=== PATIENT | male | born 1975 | race Caucasian/White ===

== ENCOUNTER 2018-03-23 09:27 | Inpatient (IN) ==
[2018-03-23] MEDS ORDERED: 0.9 % Sodium Chloride 1,000 ML IVC ONE (09:36)
[2018-03-23] MEDS ORDERED: Ondansetron 4 MG/2 ML VIAL IVP ONE (09:36)
[2018-03-23] MEDS ORDERED: *HR* FentaNYL (PF) 100 MCG/2 ML VIAL IVP ONE ×2 (09:38→12:05)
--- NOTE | 2018-03-23 09:40 | Emergency Department Note ---
Disposition Clinical Impression: Pancreatitis Qualifiers: Chronicity: acute Pancreatitis type: unspecified pancreatitis type Acute pancreatitis complication: unspecified Qualified Code(s): K85.90 - Acute pancreatitis without necrosis or infection, unspecified Disposition: Admitted As Inpatient Condition: Good Time of Disposition: 11:44 Abdominal Pain HPI - General Chief Complaint: ED Abdominal Pain Stated Complaint: abd pain Time Seen by Provider: 03/23/18 09:32 Source: patient, family Mode of arrival: ambulatory Limitations: no limitations Nursing Notes Reviewed: Yes Vital Signs Reviewed: Yes - History of Present Illness HPI Narrative: 42-year-old with a history of previous pancreatitis related to elevated triglycerides comes in complaining of diffuse abdominal pain. He feels that it so similar to his pancreatitis that he has had the past. Is scheduled to see a specialist up at [facility] in the coming weeks. Headache for the last for 5 days. Pt Subjective Complaint: abdominal pain Onset (ago): day(s) Consistency: constant Location: diffuse Pain Scale: 10 Quality: aching Radiation: none Migration to: no migration Improves with: nothing Worsens with: nothing - Related Data Previous Rx's Medication Instructions Recorded Hydrocodone/Acetaminophen [[place] 1 tab PO Q6H PRN #16 tab 09/21/15 5-325 Tablet] Hydrocortisone Acetate [Anusol-Hc] 25 mg RC BID #28 supp.rect 09/21/15 Allergies Allergy/AdvReac Type Severity Reaction Status Date / Time No Known Allergies Allergy Verified 03/23/18 09:30 All systems ED: reviewed and negative except as stated. Constitutional: Denies: fever, chills, weakness, weight change Eyes: Denies: eye pain, eye discharge, vision change ENT ED: Denies: ear pain, throat pain, dental pain, hearing loss, epistaxis, congestion, dysphagia Cardiovascular: Denies: chest pain, palpitations, dyspnea on exertion, edema, syncope Respiratory: Denies: cough, dyspnea, wheezes, hemoptysis, stridor Gastrointestinal: Reports: abdominal pain. Denies: nausea, vomiting, diarrhea, constipation, hematemesis, melena, hematochezia Genitourinary: Denies: urgency, dysuria, frequency, hematuria Musculoskeletal: Denies: back pain, neck pain, arthralgia, myalgia Integumentary: Denies: rash, abrasion, lesions Neurological: Reports: headache. Denies: weakness, numbness, paresthesias, confusion, abnormal gait, vertigo Psychiatric: Denies: anxiety, depression, suicidal thoughts, homicidal thoughts , auditory hallucinations, visual hallucinations Endocrine: Denies: fatigue Hematological/Lymphatic: Denies: easy bleeding, easy bruising Allergic/Immunologic: Denies: facial swelling, urticaria Abdominal Pain PMH - Past Medical History Medical history: Reports: diabetes, GERD, hyperlipidemia, hypertension Male Surgical History: Reports: no surgical history Psychiatric history: Reports: depression - Social History Smoking status: Current every day smoker Alcohol use: Reports: rarely Drug use: Reports: none Physical Exam - General Limitations: no limitations General appearance: alert, in no apparent distress - Head Head exam: atraumatic, normocephalic, normal inspection - Eye Eye exam: Present: normal appearance, PERRL, EOMI - ENT ENT exam: normal exam, normal oropharynx, mucous membranes moist - Neck Neck exam: Present: normal inspection, full ROM, trachea midline - Chest Chest inspection: Present: normal inspection, symmetric chest wall rise - Respiratory Respiratory exam: Present: normal lung sounds bilaterally - Cardiovascular Cardiovascular exam: Present: regular rate, normal rhythm, normal heart sounds - Abdominal Exam Abdominal exam: Present: soft, tenderness. Absent: distention, guarding, rebound, rigidity Abdominal tenderness: Present: diffuse - Extremities Exam Extremities exam: Present: normal inspection, full ROM. Absent: tenderness, pedal edema - Expanded Lower Extremity Exam Neurovascular/Tendon exam: Absent: motor deficit, sensory deficit, tendon deficit Gait: observed and normal - Back Exam Back exam: Present: normal inspection, full ROM. Absent: tenderness - Neurological Exam Neurological exam: Present: alert, oriented X3. Absent: motor sensory deficit - Psychiatric Psychiatric exam: Present: normal affect, normal mood - Skin Skin exam: Present: warm, dry, intact, normal color Course - Reevaluation(s) Reevaluation #1: 42-year-old with a history of pancreatitis related to triglycerides comes in with increasing pain. CT scan is consistent with acute pancreatitis patient will be admitted. Time: 11:43 Reevaluation #2: The patient now states he has not taken his blood pressure medicine for at least 2 weeks. Review of the records shows on metoprolol 100 once a day and lisinopril 20. Since he has not been on them for 2 weeks we will started I will give him 50 mg metoprolol now along with his lisinopril. The headache is CT is negative I did discuss lumbar puncture with him and he declined that. Time: 12:21 - Consultations Consultation #1: Discussed with , admit. Time: 11:44 Vital Signs Temperature 98.2 F 03/23/18 09:29 Pulse Rate 106 03/23/18 09:29 Respiratory Rate 20 03/23/18 09:29 Blood Pressure 155/102 03/23/18 09:29 O2 Sat by Pulse Oximetry 95 03/23/18 09:29 Temperature 98.2 F 03/23/18 09:29 Pulse Rate 106 03/23/18 09:29 Respiratory Rate 20 03/23/18 09:29 Blood Pressure 155/102 03/23/18 09:29 O2 Sat by Pulse Oximetry 95 03/23/18 09:29 Oxygen Delivery Oxygen Delivery Room Air Abdominal Pain - Lab Data Lab results reviewed: Yes I reviewed the patient's lab results. Result diagrams: 03/23/18 10:13 03/23/18 09:49 Lab Results 03/23/18 03/23/18 03/23/18 Range/Units 09:49 09:49 09:49 WBC (4.3-11.1) K/mcL RBC (4.19-5.50) M/mcL Hgb (12.9-16.9) g/dL Hct (37.5-50.1) % MCV (83.0-100.0) fL MCH (28.0-33.3) pg MCHC (31.6-35.5) g/dL RDW (11.5-14.5) % Plt Count (140-400) K/mcL MPV (9.4-12.4) fL Immature Gran % (0-4) % Seg Neutrophils % % Lymphocytes % % Monocytes % % Eosinophils % % Basophils % % Neutrophils # (1.6-8.9) K/mcL Lymphocytes # (0.6-4.6) K/mcL Monocytes # (0.0-1.3) K/mcL Eosinophils # (0.0-0.6) K/mcL Basophils # (0.0-0.2) K/mcL PT TNP INR TNP APTT TNP Sodium 124 L (136-145) mEq/L Potassium 3.6 (3.5-5.1) mEq/L Chloride 95 L (98-107) mEq/L Carbon Dioxide 20 L (23-29) mEq/L BUN 10 (6-20) mg/dL Creatinine 0.62 L (0.70-1.30) mg/dL Est GFR ( Amer) > 60 (> 60) Est GFR (Non-Af Amer) > 60 (> 60) BUN/Creatinine Ratio 16 (6-26) Glucose 185 H (70-105) mg/dL Calculated Osmolality 262 L (280-300) Calcium 7.8 L (8.6-10.3) mg/dL Total Bilirubin 0.6 (0.3-1.0) mg/dL Direct Bilirubin 0.2 (0.0-0.2) mg/dL Indirect Bilirubin 0.4 (0.0-1.2) mg/dL AST 16 (13-39) Units/L ALT 18 (7-52) Units/L Alkaline Phosphatase 84 (34-104) Units/L Troponin I < 0.03 (< 0.04) ng/mL Serum Total Protein 5.0 L (6.4-8.9) g/dL Albumin 3.4 L (3.5-5.7) g/dL Globulin 1.6 L (2.4-3.5) g/dL Albumin/Globulin Ratio 2.1 (1.1-2.2) Amylase 28 L (29-103) Units/L Lipase 34 (11-82) Units/L Urine Color (Yellow) Urine Clarity (Clear) Urine pH (5.0-8.0) pH Units Ur Specific [place] (1.010-1.025) Urine Protein (Neg-Trace) mg/dL Urine Glucose (UA) (Normal) mg/dL Urine Ketones (Negative) mg/dL Urine Blood (Negative) Urine Nitrite (Negative) Urine Bilirubin (Negative) Urine Urobilinogen (Normal) mg/dL Ur Leukocyte Esterase (Negative) Urine Microscopic RBC (0-3) per hpf Urine Microscopic WBC (0-3) per hpf Ur Squamous Epith Cells (None-Few) per lpf Urine Bacteria (None-Few) per hpf Hyaline Casts (None-Few) per lpf Ur Culture Indicated? (NO) Specimen Rejected Volume 03/23/18 03/23/18 Range/Units 10:13 10:59 WBC 14.4 H (4.3-11.1) K/mcL RBC 4.63 (4.19-5.50) M/mcL Hgb 12.1 L (12.9-16.9) g/dL Hct 37.9 (37.5-50.1) % MCV 81.9 L (83.0-100.0) fL MCH 26.1 L (28.0-33.3) pg MCHC 31.9 (31.6-35.5) g/dL RDW 14.6 H (11.5-14.5) % Plt Count 201 (140-400) K/mcL MPV 11.6 (9.4-12.4) fL Immature Gran % 0.5 (0-4) % Seg Neutrophils % 78.2 % Lymphocytes % 10.9 % Monocytes % 7.7 % Eosinophils % 2.4 % Basophils % 0.3 % Neutrophils # 11.3 H (1.6-8.9) K/mcL Lymphocytes # 1.6 (0.6-4.6) K/mcL Monocytes # 1.1 (0.0-1.3) K/mcL Eosinophils # 0.4 (0.0-0.6) K/mcL Basophils # 0.0 (0.0-0.2) K/mcL PT INR APTT Sodium (136-145) mEq/L Potassium (3.5-5.1) mEq/L Chloride (98-107) mEq/L Carbon Dioxide (23-29) mEq/L BUN (6-20) mg/dL Creatinine (0.70-1.30) mg/dL Est GFR ( Amer) (> 60) Est GFR (Non-Af Amer) (> 60) BUN/Creatinine Ratio (6-26) Glucose (70-105) mg/dL Calculated Osmolality (280-300) Calcium (8.6-10.3) mg/dL Total Bilirubin (0.3-1.0) mg/dL Direct Bilirubin (0.0-0.2) mg/dL Indirect Bilirubin (0.0-1.2) mg/dL AST (13-39) Units/L ALT (7-52) Units/L Alkaline Phosphatase (34-104) Units/L Troponin I (< 0.04) ng/mL Serum Total Protein (6.4-8.9) g/dL Albumin (3.5-5.7) g/dL Globulin (2.4-3.5) g/dL Albumin/Globulin Ratio (1.1-2.2) Amylase (29-103) Units/L Lipase (11-82) Units/L Urine Color Yellow (Yellow) Urine Clarity Clear (Clear) Urine pH 7.0 (5.0-8.0) pH Units Ur Specific [place] 1.030 H (1.010-1.025) Urine Protein >=1000 H (Neg-Trace) mg/dL Urine Glucose (UA) 500 H (Normal) mg/dL Urine Ketones 15 H (Negative) mg/dL Urine Blood Negative (Negative) Urine Nitrite Negative (Negative) Urine Bilirubin Negative (Negative) Urine Urobilinogen Normal (Normal) mg/dL Ur Leukocyte Esterase Negative (Negative) Urine Microscopic RBC 5-15 H (0-3) per hpf Urine Microscopic WBC 0-3 (0-3) per hpf Ur Squamous Epith Cells Many H (None-Few) per lpf Urine Bacteria None Seen (None-Few) per hpf Hyaline Casts None Seen (None-Few) per lpf Ur Culture Indicated? NO (NO) Specimen Rejected - EKG Data EKG attestation: Yes I reviewed and interpreted this EKG. EKG shows normal: sinus rhythm Rate: normal Rhythm: NSR [place]/QRS: normal Interpretation: nonspecific ST-T wave changes
[2018-03-23 10:28] LABS: Troponin I < 0.03 ng/mL (< 0.04)
[2018-03-23 11:11] LABS: Alanine Aminotransferase 18 Units/L (7-52); Albumin 3.4 g/dL (3.5-5.7); Albumin/Globulin Ratio 2.1 (1.1-2.2); Alkaline Phosphatase 84 Units/L (34-104); Amylase 28 Units/L (29-103); Aspartate Amino Transferase 16 Units/L (13-39); BUN/Creatinine Ratio 16 (6-26); Bilirubin,Direct 0.2 mg/dL (0.0-0.2); Bilirubin,Indirect 0.4 mg/dL (0.0-1.2); Bilirubin,Total 0.6 mg/dL (0.3-1.0); Blood Urea Nitrogen 10 mg/dL (6-20); Calcium 7.8 mg/dL (8.6-10.3); Carbon Dioxide 20 mEq/L (23-29); Chloride 95 mEq/L (98-107); Globulin 1.6 g/dL (2.4-3.5); Glucose 185 mg/dL (70-105); Lipase 34 Units/L (11-82); Osmolality,Calculated 262 (280-300); Potassium 3.6 mEq/L (3.5-5.1); Sodium 124 mEq/L (136-145); eGFR For African Americans > 60 (> 60); eGFR For Non-African Americans > 60 (> 60)
[2018-03-23 11:13] LABS: Bilirubin,Urine Negative (Negative); Blood,Urine Negative (Negative); Clarity,Urine Clear (Clear); Color,Urine Yellow (Yellow); Glucose,Urine (UA) 500 mg/dL (Normal); Ketones,Urine 15 mg/dL (Negative); Leukocyte Esterase,Urine Negative (Negative); Nitrite,Urine Negative (Negative); Protein,Urine >=1000 mg/dL (Neg-Trace); Urobilinogen,Urine Normal (Normal)
[2018-03-23 11:15] LABS: Basophils % 0.3 %; Eosinophils # 0.4 K/mcL (0.0-0.6); Eosinophils % 2.4 %; Hematocrit 37.9 % (37.5-50.1); Immature Granulocytes % 0.5 % (0-4); Lymphocytes # 1.6 K/mcL (0.6-4.6); Lymphocytes % 10.9 %; Mean Corpuscular Volume 81.9 fL (83.0-100.0); Mean Platelet Volume 11.6 fL (9.4-12.4); Monocytes # 1.1 K/mcL (0.0-1.3); Monocytes % 7.7 %; Neutrophils # 11.3 K/mcL (1.6-8.9); Platelet Count 201 K/mcL (140-400); Red Blood Count 4.63 M/mcL (4.19-5.50); Red Cell Distribution Width 14.6 % (11.5-14.5); Segmented Neutrophils % 78.2 %
[2018-03-23 11:15] LABS: Bacteria,Urine None Seen per hpf (None-Few); Hyaline Casts,Urine None Seen per lpf (None-Few); Squamous Epithelial Cell,Urine Many per lpf (None-Few); WBC,Urine 0-3 per hpf (0-3)
[2018-03-23 11:19] LABS: Hemoglobin 12.1 g/dL (12.9-16.9); Mean Corpuscular Hemoglobin 26.1 pg (28.0-33.3)
[2018-03-23 11:20] LABS: Mean Corpuscular HGB Conc 31.9 g/dL (31.6-35.5)
[2018-03-23] MEDS ORDERED: Lisinopril 20 MG TABLET PO STA (12:22)
[2018-03-23] MEDS ORDERED: *HR* OxyCODONE/APAP 5/325 TABLET PO PRN (13:11)
[2018-03-23] MEDS ORDERED: Naloxone 0.4 MG/ML INJ IVP PRN (14:09)
[2018-03-23] MEDS ORDERED: D5% in Water 1,000 ML IVC PRN (14:30)
[2018-03-23] MEDS ORDERED: Dextrose Gel 15 GM/37.5 ML TUBE PO PRN ×2 (14:30)
[2018-03-23] MEDS ORDERED: *HR* Dextrose 50 % in Water (Syg) 50 ML SYRINGE IVP PRN (14:30)
[2018-03-23] MEDS: Ibuprofen 400 MG TABLET PO PRN ×2 (15:37→21:45)
[2018-03-23] MEDS: Nicotine 14 MG PATCH.TD24 TD SCH (15:37)
[2018-03-23] MEDS: Pantoprazole 40 MG VIAL IVP SCH (15:39)
[2018-03-23] MEDS: 0.9 % Sodium Chloride w KCl 20 MEQ/1,000 ML MLS IVC SCH ×2 (15:41→23:48)
--- NOTE | 2018-03-23 15:57 | Internal Med History&Physical ---
<PapialciraveroniqueAdarsh medina - Last Filed: 03/23/18 16:34> Date of Encounter: 03/23/18 Time of Encounter: 14:00 Internal Medicine - H&P: HPI Chief complaint: Abdominal pain Admitted From: Emergency Dept Plans for Post Hospital Care: Home History of present illness: Mr. Miller is a 42 year old male w/PMH of diabetes controlled with oral antihyperglycemic medications, GERD, HLD, and HTN presents from the ED with chief complaint of abdominal pain that began yesterday and a tension type headache that began 5 days ago w/eye pain and eye drainage. Reports hx of sinus problems. Patient states he had similar abdominal pain 3 years ago with pancreatitis dx. onset of tension-type headache as new. Pt. reports Ibuprofen helps w/GARNETT pain. Pt. reports he has not eaten since Thursday d/t N/V. Reports appt. @ [facility] April for triglyceride elevation. Pt. reports being NPO helps w/abdominal pain. Denies recent illness, fever, chills, changes in vision , chest pain, shortness of breath, palpitations, weakness, fatigue, numbness, tingling, diarrhea, constipation, dizziness, lightheadedness, cough, chest congestion, presyncope, or syncope. Past Med Surg Social Fam HX - Past Medical History Source: patient, old records reviewed, obtained from family Medical history: diabetes (Controlled w/oral anti-hypergycemics), GERD, hyperlipidemia, hypertension Psychiatric history: depression - Social History Smoking Status: Current every day smoker Packs per day: 1 PPD Smokeless Tobacco Status: No Alcohol use: rarely Drug use: none Occupational status: employed Current living situation: Home, With Family Activity Level: Independent ambulation Recent Out of Country Travel Within the Last 8 Weeks: No Exposure or Possible Exposure to Illness During Travel: No - Family History Father History Unknown: Yes Race: Family Member Ethnicity: Non- Living Status: Still Living Mother Race: Family Member Ethnicity: Non- Living Status: Still Living Hx Family Cancer: Yes (Colon) Grandmother Race: Family Member Ethnicity: Non- Living Status: Cause of : Bone cancer Hx Family Cancer: Yes (Bone) Hx Family Endocrine Disorder: Yes (DM) Grandfather Race: Family Member Ethnicity: Non- Living Status: Cause of : LA Hx Family Cardiac Disorders: Yes (LA @ age 50) Internal Medicine - H&P: Meds Atorvastatin [Lipitor] 40 mg PO HS 03/23/18 [History] Escitalopram [Lexapro] 20 mg PO DAILY 03/23/18 [History] Glimepiride [Amaryl] 2 mg PO DAILY 03/23/18 [History] Lisinopril [Zestril] 20 mg PO DAILY 03/23/18 [History] Metoprolol Succinate 100 mg PO DAILY 03/23/18 [History] Hopkins-3/Dha/Epa/Fish Oil [Fish Oil 1,000 mg Softgel] 2 cap PO DAILY 03/23/18 [ History] Omeprazole [PriLOSEC] 20 mg PO BID 03/23/18 [History] metFORMIN [Glucophage] 1,000 mg PO BIDWM 03/23/18 [History] 3 Allergy/AdvReac Type Severity Reaction Status Date / Time No Known Allergies Allergy Verified 03/23/18 09:30 All Systems PM: A 10-system review of systems was performed and is negative for pertinent findings except as documented above in the HPI. - Constitutional Constitutional: as per HPI, no chills, no fever(s), no night sweats - EENT Eyes: no change in vision, no discharge, no pain, no photophobia Ears: no ear discharge, no ear pain, no tinnitus Nose, mouth and throat: no dysphagia, no nasal discharge, no neck pain, no sore throat - Breasts Breasts: as per HPI - Cardiovascular Cardiovascular ROS IM: no chest pain, no diaphoresis, no dyspnea, no lightheadedness, no palpitations, no syncope - Respiratory Respiratory: no cough, no dyspnea, no wheezing, no excessive phlegm production - Gastrointestinal Gastrointestinal: as per HPI, abdominal pain, nausea, vomiting, no diarrhea, no hematemesis, no hematochezia, no melena - Genitourinary Genitourinary ROS male: as per HPI - Musculoskeletal Musculoskeletal ROS IM: no numbness, no tingling - Integumentary Integumentary IM: no rash, no unusual bruising - Neurological Neurological ROS: no confusion, no convulsions, no focal weakness, no numbness, no tingling, no tremor(s) - Psychiatric Psychiatric: as per HPI, depression - Endocrine Endocrine IM: as per HPI - Hematologic/Lymphatic Hematologic/Lymphatic: no easy bruising - Allergic/Immunologic Allergic/Immunologic: as per HPI - Constitutional Vitals: Temp Pulse Resp BP Pulse Ox 98.0 F 97 16 138/90 95 03/23/18 12:56 03/23/18 12:56 03/23/18 12:56 03/23/18 12:56 03/23/18 12:56 General appearance: Present: cooperative, mild distress (Abdominal pain), A&O X 3, morbidly obese, answers questions appropriately - Head Head exam: Present: atraumatic, normocephalic - Eye Eye exam: Present: PERRL, conjuntiva pink, sclera anicteric Pupils: Present: PERRL - ENT ENT exam: Present: normal exam - Neck Neck exam general surgery: Present: supple, trachea midline. Absent: lymphadenopathy - Respiratory Respiratory exam: Present: CTAB. Absent: accessory muscle use, rales, rhonchi, wheezes - Cardiovascular Cardiovascular exam: Present: RRR, +S1, +S2. Absent: diastolic murmur, gallop, rubs, systolic murmur - GI/Abdominal GI/Abdominal exam: Present: normal bowel sounds, soft, tenderness, no peritoneal signs. Absent: distended - Rectal Rectal exam: Present: deferred - Additional comments: exam deferred. - Extremities Exam Extremities exam: Present: warm, radial pulses palpable and symmetrical. Absent : calf tenderness, cyanotic, pedal edema - Back Exam Back exam: Present: normal inspection - Neurological Exam Neurological exam: Present: CN II-XII intact, oriented X3, no focal deficits. Absent: pronater drift, facial droop, speech deficit - Psychiatric Psychiatric exam: Present: normal affect, normal mood - Skin Skin exam: Present: dry, intact Internal Med - H&P Results - Labs CBC & Chem 7: 03/23/18 10:13 03/23/18 09:49 - Diagnostic Studies CT scan - head Additional comments: Impressions Head CT 03/23/18 09:39 IMPRESSION: No acute intracranial abnormality. D/ / Daniel Miramontes MD / Daniel Miramontes MD Interpreting Provider: Daniel Miramontes MD CT scan - abdomen Additional comments: Impressions Abdomen/Pelvis CT 03/23/18 09:36 IMPRESSION: Findings compatible with mild acute pancreatitis in the distal body and tail. Hepatomegaly with findings of steatosis. D/ / Atul Medina / Atul Medina Interpreting Provider: Atul Medina Other Images Additional comments: Impressions Gallbladder Ultrasound 03/23/18 09:37 IMPRESSION: 1. Fatty liver. 2. No evidence of gallstones. D/ / 03/23/2018 11:44:55 Saul Gardner MD / maricruz Interpreting Provider: Saul Gardner MD - Assessment and plan (1) Pancreatitis Current Visit: Yes Status: Acute Assessment and plan: Acute pancreatitis. Pt. reports similar sx [address] abdomen/pelvis today shows findings compatible with mild acute pancreatitis in the distal body and tail. Hepatomegaly with findings of steatosis. NPO status for now. will advance diet as tolerated as appropriate. IV 0.9 NS w/20 mEq KCl @ 125 mL/HR. IVP Zofran 4 mg. Q6HR PRN for N/V. Stair-step pain medications for pain mgmt. Pt. discussed w/Dr. Harvey who agrees with plan of care. Patient is moderate risk for further morbidity based on current symptoms, history of pancreatitis, current hyponatremia requiring close monitoring, history and risk factors. Observation. Qualifiers: Chronicity: acute Pancreatitis type: unspecified pancreatitis type Acute pancreatitis complication: unspecified Qualified Code(s): K85.90 - Acute pancreatitis without necrosis or infection, unspecified (2) Headache Current Visit: Yes Status: Acute Assessment and plan: Acute tension-type GARNETT that patient reports begins at the base of his neck and extends over his head to his forehead. Reports eye pain as well as eye drainage and history of sinus problems. States headache is been present for the past 5 days intermittently. New onset of tension-type headache. Stair- step pain medications for pain management. Qualifiers: Headache type: tension-type Headache chronicity pattern: acute headache Intractability: not intractable Qualified Code(s): G44.209 - Tension-type headache, unspecified, not intractable (3) Nausea & vomiting Current Visit: Yes Status: Acute Assessment and plan: Acute N/V from pancreatitis. NPO status for now. Will begin clear liquid diet when pt. able to tolerate and advance as tolerated. IVP Zofran 4 mg. Q6HR PRN for N/V. Qualifiers: Vomiting type: cyclical vomiting Vomiting Intractability: non-intractable Qualified Code(s): G43.A0 - Cyclical vomiting, not intractable (4) Diabetes Current Visit: Yes Status: Chronic Assessment and plan: Hx of chronic diabetes controlled by oral antihyperglycemic medications. Will hold oral medications and administer low-dose correction insulin sliding scale with hypoglycemic protocol. A1c in a.m. labs. BG checks before meals at bedtime. Qualifiers: Diabetes mellitus type: type 2 Diabetes mellitus oil heaterman insulin use: without oil heaterman use Diabetes mellitus complication status: with unspecified complications Qualified Code(s): E11.8 - Type 2 diabetes mellitus with unspecified complications (5) GERD (gastroesophageal reflux disease) Current Visit: Yes Status: Chronic Assessment and plan: Hx of chronic GERD. Protonix 40 mg IVP daily. Qualifiers: Esophagitis presence: esophagitis presence not specified Qualified Code(s) : K21.9 - Gastro-esophageal reflux disease without esophagitis (6) HLD (hyperlipidemia) Current Visit: Yes Status: Chronic Assessment and plan: Hx of chronic HLD. Lipid panel in a.m.labs. Continue patient's Lipitor. Qualifiers: Hyperlipidemia type: pure hypercholesterolemia Qualified Code(s): E78.00 - Pure hypercholesterolemia, unspecified; E78.0 - Pure hypercholesterolemia (7) HTN (hypertension) Current Visit: Yes Status: Chronic Assessment and plan: Hx of chronic HTN. Monitor pt. and VS. Continue pts. Lisinopril and metoprolol. Qualifiers: Hypertension type: essential hypertension Qualified Code(s): I10 - Essential (primary) hypertension (8) Tobacco abuse Current Visit: Yes Status: Chronic Assessment and plan: Hx of chronic tobacco abuse. Pt. not interested in quitting at this time. 14 mg nicotine patch ordered daily. (9) JESSICA (obstructive sleep apnea) Current Visit: Yes Status: Chronic Assessment and plan: Hx of chronic JESSICA. CPAP ordered HS. Supplemental O2 w/titration and SpO2 monitoring PRN. (10) DVT prophylaxis Current Visit: Yes Status: Acute Assessment and plan: Heparin 5000 units subcutaneous every 8 for DVT prophylaxis. Monitor patient for signs of bleeding. (11) Hyponatremia Current Visit: Yes Status: Acute Assessment and plan: Acute hyponatremia w/sodium of 12 on admission. 0.9 NS w/20 mEq KCl @ 125 mL/HR ordered. Will repeat sodium level at 18:00 and 00:00 tomorrow morning to ensure there is no sodium increase > 8-10 mEq w/i 24 hours. Continuous telemetry. Monitor pt. and f/u labs. - Time Spent With Patient Total time spent is greater than 50% in coordination of care (as documented) at patient's floor/unit and/or counseling patient: 25 - 35 minutes <Flavio Harvey - Last Filed: 03/23/18 16:58> Date of Encounter: 03/23/18 Time of Encounter: 16:51 - Constitutional Vitals: Temp Pulse Resp BP Pulse Ox 98.0 F 97 16 138/90 95 03/23/18 12:56 03/23/18 12:56 03/23/18 12:56 03/23/18 12:56 03/23/18 12:56 General appearance: Present: cooperative, mild distress, A&O X 3, pleasant, answers questions appropriately - Eye Eye exam: Present: PERRL. Absent: scleral icterus - ENT ENT exam: Present: mucous membranes dry, normal exam - Neck Neck exam general surgery: Present: full ROM, supple. Absent: tenderness, nuchal rigidity, thyromegaly, trachea midline - Respiratory Respiratory exam: Present: CTAB. Absent: rales, rhonchi, wheezes - Cardiovascular Cardiovascular exam: Present: RRR, +S1, +S2. Absent: diastolic murmur, systolic murmur - GI/Abdominal GI/Abdominal exam: Present: soft, tenderness (epigastrium), no peritoneal signs. Absent: guarding, hepatomegaly, rebound, splenomegaly - Extremities Exam Extremities exam: Present: warm, radial pulses palpable and symmetrical. Absent : calf tenderness, cyanotic - Back Exam Back exam: Absent: CVA tenderness (L), CVA tenderness (R) - Skin Skin exam: Present: dry, warm. Absent: rash Internal Med - H&P Results - Labs CBC & Chem 7: 03/23/18 10:13 03/23/18 09:49 - Attending Attestation I discussed the patient TANGIRNAQ, past medical history, review of systems, lab data , and exam findings with Connor Orosco CNP. I then saw and examined patient independently. Patient confirms that this is his second episode of pancreatitis. His first episode was roughly 3 years ago. He does not drink alcohol except on very rare occasions, roughly 2-3 times per year. He has severe hyperlipidemia and hypertriglyceridemia. Despite taking lipid-lowering agents and fibrates, his cholesterol and triglycerides are uncontrolled. He is due to see specialists at [facility] in early April to address his triglyceride and lipid management. This is most likely the culprit for his pancreatitis. He denies any fevers, chills, body aches, dysuria, or hematuria. Presently, his pain is controlled he has minimal nausea. He feels much better now. Regarding his hyponatremia, he has a history of hyponatremia in the past but does not take any diuretics. Furthermore, he does not drink any alcohol except on very rare occasions. This may be due to pseudohyponatremia from his hyperglycemia. We will monitor him closely with serial electrolyte assessments. Other than my above comments and noted exam findings, I agree with Connor's assessment and plan. - Assessment and plan (1) Pancreatitis Current Visit: Yes Status: Acute Qualifiers: Chronicity: acute Pancreatitis type: unspecified pancreatitis type Acute pancreatitis complication: unspecified Qualified Code(s): K85.90 - Acute pancreatitis without necrosis or infection, unspecified (2) Diabetes Current Visit: Yes Status: Chronic Qualifiers: Diabetes mellitus type: type 2 Diabetes mellitus residential insulin use: without oil heaterman use Diabetes mellitus complication status: with unspecified complications Qualified Code(s): E11.8 - Type 2 diabetes mellitus with unspecified complications (3) GERD (gastroesophageal reflux disease) Current Visit: Yes Status: Chronic Qualifiers: Esophagitis presence: esophagitis presence not specified Qualified Code(s) : K21.9 - Gastro-esophageal reflux disease without esophagitis (4) HLD (hyperlipidemia) Current Visit: Yes Status: Chronic Qualifiers: Hyperlipidemia type: pure hypercholesterolemia Qualified Code(s): E78.00 - Pure hypercholesterolemia, unspecified; E78.0 - Pure hypercholesterolemia (5) HTN (hypertension) Current Visit: Yes Status: Chronic Qualifiers: Hypertension type: essential hypertension Qualified Code(s): I10 - Essential (primary) hypertension (6) DVT prophylaxis Current Visit: Yes Status: Acute (7) Nausea & vomiting Current Visit: Yes Status: Acute Qualifiers: Vomiting type: cyclical vomiting Vomiting Intractability: non-intractable Qualified Code(s): G43.A0 - Cyclical vomiting, not intractable (8) Tobacco abuse Current Visit: Yes Status: Chronic (9) JESSICA (obstructive sleep apnea) Current Visit: Yes Status: Chronic (10) Headache Current Visit: Yes Status: Acute Qualifiers: Headache type: tension-type Headache chronicity pattern: acute headache Intractability: not intractable Qualified Code(s): G44.209 - Tension-type headache, unspecified, not intractable (11) Hyponatremia Current Visit: Yes Status: Acute - Time Spent With Patient Total time spent is greater than 50% in coordination of care (as documented) at patient's floor/unit and/or counseling patient:
[2018-03-23] MEDS ORDERED: *HR* Promethazine 25 MG/ML VIAL IVP PRN (16:02)
[2018-03-23] MEDS: Insulin LISPRO 300 UNITS/3 ML VIAL SQ SCH (17:03)
[2018-03-23] MEDS: *HR* HYDROcodone/Acet 5/325 mg TABLET PO PRN (18:39)
[2018-03-23] MEDS ORDERED: Insulin LISPRO 300 UNITS/3 ML VIAL SQ SCH (21:00)
[2018-03-23] MEDS: *HR* Heparin 5,000 UNIT/ML VIAL SQ SCH (21:45)
[2018-03-24 01:07] LABS: Mean Platelet Volume 11.7 fL (9.4-12.4)
[2018-03-24 01:09] LABS: Basophils % 0.2 %; Eosinophils # 0.3 K/mcL (0.0-0.6); Eosinophils % 2.4 %; Hemoglobin 13.1 g/dL (12.9-16.9); Immature Granulocytes % 0.6 % (0-4); Lymphocytes # 1.6 K/mcL (0.6-4.6); Mean Corpuscular Hemoglobin 30.8 pg (28.0-33.3); Mean Corpuscular Volume 82.4 fL (83.0-100.0); Monocytes # 1.1 K/mcL (0.0-1.3); Monocytes % 9.3 %; Platelet Count 180 K/mcL (140-400); Red Blood Count 4.25 M/mcL (4.19-5.50); Red Cell Distribution Width 14.5 % (11.5-14.5); Segmented Neutrophils % 74.5 %
[2018-03-24 01:17] LABS: Mean Corpuscular HGB Conc 37.4 g/dL (31.6-35.5)
[2018-03-24 02:13] LABS: Platelet Estimate Slight Decrease (Normal)
[2018-03-24 02:20] LABS: Cholesterol 634 mg/dL (< 200)
[2018-03-24] MEDS: *HR* HYDROcodone/Acet 5/325 mg TABLET PO PRN ×2 (02:47→08:26)
[2018-03-24 03:49] LABS: Alanine Aminotransferase 16 Units/L (7-52); Albumin 3.2 g/dL (3.5-5.7); Albumin/Globulin Ratio 1.5 (1.1-2.2); Alkaline Phosphatase 88 Units/L (34-104); Aspartate Amino Transferase 11 Units/L (13-39); BUN/Creatinine Ratio 15 (6-26); Bilirubin,Total 0.8 mg/dL (0.3-1.0); Blood Urea Nitrogen 10 mg/dL (6-20); Calcium 7.9 mg/dL (8.6-10.3); Carbon Dioxide 24 mEq/L (23-29); Chloride 109 mEq/L (98-107); Chol/HDL Ratio 27.6 (0-4.9); Globulin 2.2 g/dL (2.4-3.5); Glucose 197 mg/dL (70-105); Osmolality,Calculated 299 (280-300); Potassium 3.5 mEq/L (3.5-5.1); Sodium 142 mEq/L (136-145); Total Protein 5.4 g/dL (6.4-8.9); Triglycerides 4023 mg/dL (< 150); eGFR For African Americans > 60 (> 60); eGFR For Non-African Americans > 60 (> 60)
[2018-03-24 03:53] LABS: Bilirubin,Indirect 0.6 mg/dL (0.0-1.2)
[2018-03-24 03:54] LABS: Bilirubin,Direct 0.2 mg/dL (0.0-0.2)
[2018-03-24] MEDS: *HR* Heparin 5,000 UNIT/ML VIAL SQ SCH ×3 (05:56→21:25)
[2018-03-24] MEDS: 0.9 % Sodium Chloride w KCl 20 MEQ/1,000 ML MLS IVC SCH (08:26)
[2018-03-24] MEDS: Pantoprazole 40 MG VIAL IVP SCH (08:26)
[2018-03-24] MEDS: Lisinopril 20 MG TABLET PO SCH (08:27)
[2018-03-24] MEDS: Nicotine 14 MG PATCH.TD24 TD SCH (08:27)
[2018-03-24] MEDS: Metoprolol XL (24 HR) Succ 50 MG TAB.ER.24H PO SCH (08:27)
[2018-03-24] MEDS: Insulin LISPRO 300 UNITS/3 ML VIAL SQ SCH (08:31)
[2018-03-24] MEDS ORDERED: [Fish Oil 1,000 Mg Softgel] PO SCH (09:00)
--- NOTE | 2018-03-24 09:22 | Internal Med Progress Note ---
<Lana Carlton - Last Filed: 03/24/18 14:25> Date of Encounter: 03/24/18 Time of Encounter: 09:21 - Assessment and plan (1) Pancreatitis Current Visit: Yes Status: Acute Assessment and plan: Hypertriglyceridemia induced acute pancreatitis demonstrated by abdominal CT along with acute onset of abdominal pain. History of acute pancreatitis 3 years ago at [facility] secondary to hypertriglyceridemia. He has an appointment at [facility] in a couple weeks to evaluate his hypertriglyceridemia. He takes Tricor and atorvastatin. He reported that he has not taken his medications in 2 weeks. He has received IV fluid bolus. Abd CT acute pancreatitis, hepatomegaly, steatosis. Gallbladder ultrasound demonstrated no stones Triglycerides 4023 Lipase 34 amylase 28 AST 11 ALT 16 -Insulin drip due to hypertriglyceridemia, along with 5% dextrose saline infusion to prevent hypoglycemia -pain management with oxycodone and norco prn -Zofran for nausea -NPO -recheck triglycerides in a.m. Qualifiers: Chronicity: acute Pancreatitis type: unspecified pancreatitis type Acute pancreatitis complication: unspecified Qualified Code(s): K85.90 - Acute pancreatitis without necrosis or infection, unspecified (2) HLD (hyperlipidemia) Current Visit: Yes Status: Chronic Assessment and plan: History of known hyperlipidemia taking atorvastatin and Tricor. -Continue atorvastatin -will start TriCor once medication has been reconciled Qualifiers: Hyperlipidemia type: pure hypercholesterolemia Qualified Code(s): E78.00 - Pure hypercholesterolemia, unspecified; E78.0 - Pure hypercholesterolemia (3) Headache Current Visit: Yes Status: Acute Assessment and plan: Tension type headache that starts from the base of his neck and goes to his forehead. He reports watery eyes drainage. Denies vision changes such as blurry vision, spots in vision, loss of vision. He reported ibuprofen taken at home seem to help to relieve the pain. -Continue ibuprofen as needed for pain -ordered one dose of Toradol Qualifiers: Headache type: tension-type Headache chronicity pattern: acute headache Intractability: not intractable Qualified Code(s): G44.209 - Tension-type headache, unspecified, not intractable (4) Nausea & vomiting Current Visit: Yes Status: Acute Assessment and plan: Acute nausea and vomiting secondary to pancreatitis. Patient reports vomiting has resolved that he still does have nausea. -Zofran PRN Qualifiers: Vomiting type: cyclical vomiting Vomiting Intractability: non-intractable Qualified Code(s): G43.A0 - Cyclical vomiting, not intractable (5) Tobacco abuse Current Visit: Yes Status: Chronic Assessment and plan: Hx of chronic tobacco abuse. Pt. not interested in quitting at this time. 14 mg nicotine patch ordered daily. (6) JESSICA (obstructive sleep apnea) Current Visit: Yes Status: Chronic Assessment and plan: History of JESSICA. CPAP ordered (7) HTN (hypertension) Current Visit: Yes Status: Chronic Assessment and plan: History of hypertension taking lisinopril a metoprolol. Blood pressure stable -Continue her medications Qualifiers: Hypertension type: essential hypertension Qualified Code(s): I10 - Essential (primary) hypertension (8) GERD (gastroesophageal reflux disease) Current Visit: Yes Status: Chronic Assessment and plan: History of known Gerd taking omeprazole -continue Protonix Qualifiers: Esophagitis presence: esophagitis presence not specified Qualified Code(s) : K21.9 - Gastro-esophageal reflux disease without esophagitis (9) DVT prophylaxis Current Visit: Yes Status: Acute Assessment and plan: Heparin sq (10) Diabetes Current Visit: Yes Status: Chronic Assessment and plan: History of diabetes taking oral antihyperglycemic medications. -On insulin sliding scale due to hypertriglyceridemia induced pancreatitis -continue Accu checks Qualifiers: Diabetes mellitus type: type 2 Diabetes mellitus 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 insulin use: without 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 use Diabetes mellitus complication status: with unspecified complications Qualified Code(s): E11.8 - Type 2 diabetes mellitus with unspecified complications (11) Hyponatremia Current Visit: Yes Status: Acute Assessment and plan: Resolved. Likely secondary to dehydration and hypertriglyceridemia - Time Spent With Patient Total time spent is greater than 50% in coordination of care (as documented) at patient's floor/unit and/or counseling patient: - Subjective Interval history: 42yo male with PMH HTN, HLDm GERD presented to [facility] complaining of abdominal pain with nausea. Imaging and symptoms suggested acute pancreatitis. He reports his pain is tolerable controlled with pain medication. He also has a tension headache that he has had when the abdominal pain started. He still has nausea. Denies chest pain, shortness of breath, fever, chills. - Constitutional Vitals: Temp Pulse Resp BP Pulse Ox 98.5 F 98 18 119/70 94 03/24/18 07:54 03/24/18 07:54 03/24/18 07:54 03/24/18 07:54 03/24/18 07:54 General appearance: Present: cooperative, mild distress, A&O X 3, pleasant, answers questions appropriately Exam: Gen.: Vitals noted. No acute distress. AAOx3 HEENT: oropharynx clear, Normocephalic, atraumatic Neck: Supple. No adenopathy. Cardiac: RRR, no murmur, +S1/S2 Pulmonary: CTA bilaterally, no wheezes, rales or rhonchi, equal chest expansion Abdomen: soft, right and left lower quadrant tender, Bowel sounds noted, no guarding Extremities: no BLE edema, nontender calf, no cyanosis or clubbing Neuro: A&Ox3, moves all extremities, no focal deficits Psych: Appropriate mood and behavior Internal Medicine: Result - Labs CBC & Chem 7: 03/24/18 00:20 03/24/18 00:20 Labs: Short CBC 03/24/18 Range/Units 00:20 WBC 12.1 H (4.3-11.1) K/mcL Hgb 13.1 (12.9-16.9) g/dL Hct 35.0 L (37.5-50.1) % Plt Count 180 (140-400) K/mcL Neutrophils # 9.0 H (1.6-8.9) K/mcL BMP 03/23/18 03/24/18 03/24/18 17:28 00:20 00:20 Sodium 127 L 128 L 142 D Potassium 3.5 Chloride 109 H Carbon Dioxide 24 BUN 10 Creatinine 0.68 L Glucose 197 H Calcium 7.9 L Liver Function 03/24/18 Range/Units 00:20 Total Bilirubin 0.8 (0.3-1.0) mg/dL Direct Bilirubin 0.2 (0.0-0.2) mg/dL AST 11 L (13-39) Units/L ALT 16 (7-52) Units/L Alkaline Phosphatase 88 (34-104) Units/L Albumin 3.2 L (3.5-5.7) g/dL - ABG Interpretation ABG results: PT/INR, D-dimer PT TNP 03/23/18 09:49 - VTE Documentation of Mechanical Device: Intermittent pneumatic compression device Consult Discharge Plan - Plan Referrals: Diya Jain CNP [Primary Care Provider] - <Jean Marie Serrano - Last Filed: 03/24/18 21:16> Date of Encounter: 03/24/18 - Assessment and plan (1) Pancreatitis Current Visit: Yes Status: Acute Qualifiers: Chronicity: acute Pancreatitis type: unspecified pancreatitis type Acute pancreatitis complication: unspecified Qualified Code(s): K85.90 - Acute pancreatitis without necrosis or infection, unspecified (2) Diabetes Current Visit: Yes Status: Chronic Qualifiers: Diabetes mellitus type: type 2 Diabetes mellitus 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 insulin 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 Diabetes mellitus complication status: with unspecified complications Qualified Code(s): E11.8 - Type 2 diabetes mellitus with unspecified complications (3) GERD (gastroesophageal reflux disease) Current Visit: Yes Status: Chronic Qualifiers: Esophagitis presence: esophagitis presence not specified Qualified Code(s) : K21.9 - Gastro-esophageal reflux disease without esophagitis (4) HLD (hyperlipidemia) Current Visit: Yes Status: Chronic Qualifiers: Hyperlipidemia type: pure hypercholesterolemia Qualified Code(s): E78.00 - Pure hypercholesterolemia, unspecified; E78.0 - Pure hypercholesterolemia (5) HTN (hypertension) Current Visit: Yes Status: Chronic Qualifiers: Hypertension type: essential hypertension Qualified Code(s): I10 - Essential (primary) hypertension (6) DVT prophylaxis Current Visit: Yes Status: Acute (7) Nausea & vomiting Current Visit: Yes Status: Acute Qualifiers: Vomiting type: cyclical vomiting Vomiting Intractability: non-intractable Qualified Code(s): G43.A0 - Cyclical vomiting, not intractable (8) Tobacco abuse Current Visit: Yes Status: Chronic (9) JESSICA (obstructive sleep apnea) Current Visit: Yes Status: Chronic (10) Headache Current Visit: Yes Status: Acute Qualifiers: Headache type: tension-type Headache chronicity pattern: acute headache Intractability: not intractable Qualified Code(s): G44.209 - Tension-type headache, unspecified, not intractable (11) Hyponatremia Current Visit: Yes Status: Acute - Time Spent With Patient Total time spent is greater than 50% in coordination of care (as documented) at patient's floor/unit and/or counseling patient: - Constitutional Vitals: Temp Pulse Resp BP Pulse Ox 99.6 F 93 15 121/79 96 03/24/18 19:03 03/24/18 19:03 03/24/18 19:03 03/24/18 19:03 03/24/18 19:03 Internal Medicine: Result - Labs CBC & Chem 7: 03/24/18 00:20 03/24/18 00:20 Labs: Short CBC 03/24/18 Range/Units 00:20 WBC 12.1 H (4.3-11.1) K/mcL Hgb 13.1 (12.9-16.9) g/dL Hct 35.0 L (37.5-50.1) % Plt Count 180 (140-400) K/mcL Neutrophils # 9.0 H (1.6-8.9) K/mcL BMP 03/24/18 03/24/18 00:20 00:20 Sodium 128 L 142 D Potassium 3.5 Chloride 109 H Carbon Dioxide 24 BUN 10 Creatinine 0.68 L Glucose 197 H Calcium 7.9 L Liver Function 03/24/18 Range/Units 00:20 Total Bilirubin 0.8 (0.3-1.0) mg/dL Direct Bilirubin 0.2 (0.0-0.2) mg/dL AST 11 L (13-39) Units/L ALT 16 (7-52) Units/L Alkaline Phosphatase 88 (34-104) Units/L Albumin 3.2 L (3.5-5.7) g/dL - ABG Interpretation ABG results: PT/INR, D-dimer PT TNP 03/23/18 09:49 - Attending Attestation I performed a history and physical examination of the patient and discussed his/ her management with the resident. I reviewed the residents note and agree with the documented findings and plan of care.
[2018-03-24] MEDS: *HR* OxyCODONE Immed Rel 5 MG TABLET PO PRN ×2 (11:58→21:25)
[2018-03-24] MEDS ORDERED: *HR* Dextrose 50 % in Water (Syg) 50 ML SYRINGE IVP PRN (11:59)
[2018-03-24] MEDS ORDERED: D5% in 0.45% NACL w KCl 20 MEQ/1,000 ML MLS IVC PRN ×2 (11:59→12:10)
[2018-03-24] MEDS ORDERED: Insulin Regular, Human 100 UNIT/ML IV PRN (11:59)
[2018-03-24] MEDS ORDERED: Insulin LISPRO 300 UNITS/3 ML VIAL SQ SCH (12:00)
[2018-03-24] MEDS ORDERED: Insulin Human Regular 100 UNIT in 0.9 % Sodium Chloride 100 ML IVC SCH (12:00)
[2018-03-24] MEDS ORDERED: Ketorolac 15 MG/ML VIAL IVP ONE (13:00)
[2018-03-24] MEDS ORDERED: Ondansetron ODT 4 MG TAB.RAPDIS SL PRN (14:43)
[2018-03-24] MEDS: D5% in 0.45% NACL w KCl 20 MEQ/1,000 ML MLS IVC SCH ×3 (14:50→21:25)
[2018-03-24 17:38] LABS: Estimated Average Glucose 235 mg/dl; Hemoglobin A1C 9.8 %
[2018-03-24] MEDS: Insulin Human Regular 100 UNIT in 0.9 % Sodium Chloride 100 ML IVC SCH (18:10)
[2018-03-25] MEDS: D5% in 0.45% NACL w KCl 20 MEQ/1,000 ML MLS IVC SCH ×3 (01:33→22:44)
[2018-03-25] MEDS: Insulin Human Regular 100 UNIT in 0.9 % Sodium Chloride 100 ML IVC SCH ×2 (02:22→10:31)
[2018-03-25] MEDS: *HR* Heparin 5,000 UNIT/ML VIAL SQ SCH ×3 (06:00→22:35)
[2018-03-25 07:06] LABS: Basophils % 0.5 %; Eosinophils # 0.3 K/mcL (0.0-0.6); Eosinophils % 4.4 %; Hematocrit 37.1 % (37.5-50.1); Hemoglobin 12.2 g/dL (12.9-16.9); Immature Granulocytes % 0.5 % (0-4); Lymphocytes # 1.8 K/mcL (0.6-4.6); Lymphocytes % 23.3 %; Mean Corpuscular HGB Conc 32.9 g/dL (31.6-35.5); Mean Corpuscular Hemoglobin 27.4 pg (28.0-33.3); Mean Corpuscular Volume 83.2 fL (83.0-100.0); Mean Platelet Volume 11.3 fL (9.4-12.4); Monocytes # 0.7 K/mcL (0.0-1.3); Neutrophils # 4.7 K/mcL (1.6-8.9); Platelet Count 172 K/mcL (140-400); Red Blood Count 4.46 M/mcL (4.19-5.50); Red Cell Distribution Width 14.7 % (11.5-14.5); Segmented Neutrophils % 62.3 %
[2018-03-25 07:17] LABS: BUN/Creatinine Ratio 9 (6-26); Blood Urea Nitrogen 7 mg/dL (6-20); Calcium 8.5 mg/dL (8.6-10.3); Carbon Dioxide 24 mEq/L (23-29); Chloride 102 mEq/L (98-107); Glucose 97 mg/dL (70-105); Osmolality,Calculated 274 (280-300); Potassium 3.5 mEq/L (3.5-5.1); Sodium 133 mEq/L (136-145); Triglycerides 2201 mg/dL (< 150); eGFR For African Americans > 60 (> 60); eGFR For Non-African Americans > 60 (> 60)
[2018-03-25] MEDS ORDERED: Insulin LISPRO 300 UNITS/3 ML VIAL SQ SCH ×2 (07:30→21:00)
--- NOTE | 2018-03-25 08:57 | Internal Med Progress Note ---
<Lana Carlton - Last Filed: 03/25/18 14:01> Date of Encounter: 03/25/18 Time of Encounter: 08:55 - Assessment and plan (1) Pancreatitis Current Visit: Yes Status: Acute Assessment and plan: Hypertriglyceridemia induced acute pancreatitis demonstrated by abdominal CT along with acute onset of abdominal pain. History of acute pancreatitis 3 years ago at [facility] secondary to hypertriglyceridemia. He has an appointment at [facility] in a couple weeks to evaluate his hypertriglyceridemia. He takes Tricor and atorvastatin. He reported that he has not taken his medications in 2 weeks. He has received IV fluid bolus. Abd CT acute pancreatitis, hepatomegaly, steatosis. Gallbladder ultrasound demonstrated no stones Triglycerides to 2201 (4023) Lipase 34 amylase 28 AST 11 ALT 16 -patient is clinically improving. He reports his abdominal pain has significantly improved but is still minimally tender in left lower quadrant. He denies nausea, vomiting however he states that food does not sound appealing. Will begin clear liquids tomorrow. -Insulin drip for hypertriglyceridemia was stopped last night hours and then restarted this morning Plan -Insulin drip due to hypertriglyceridemia, along with 5% dextrose saline infusion to prevent hypoglycemia -pain management with norco prn -Zofran for nausea -NPO -recheck triglycerides in a.m. Qualifiers: Chronicity: acute Pancreatitis type: unspecified pancreatitis type Acute pancreatitis complication: unspecified Qualified Code(s): K85.90 - Acute pancreatitis without necrosis or infection, unspecified (2) HLD (hyperlipidemia) Current Visit: Yes Status: Chronic Assessment and plan: History of known hyperlipidemia taking atorvastatin and Tricor. -Continue atorvastatin and TriCor Qualifiers: Hyperlipidemia type: pure hypercholesterolemia Qualified Code(s): E78.00 - Pure hypercholesterolemia, unspecified; E78.0 - Pure hypercholesterolemia (3) Headache Current Visit: Yes Status: Acute Assessment and plan: Tension type headache that starts from the base of his neck and goes to his forehead. He reports watery eyes drainage. Denies vision changes such as blurry vision, spots in vision, loss of vision. He reported ibuprofen taken at home seem to help to relieve the pain. He denied complaining of headache today. -Continue ibuprofen as needed for pain Qualifiers: Headache type: tension-type Headache chronicity pattern: acute headache Intractability: not intractable Qualified Code(s): G44.209 - Tension-type headache, unspecified, not intractable (4) Nausea & vomiting Current Visit: Yes Status: Acute Assessment and plan: Resolved Acute nausea and vomiting secondary to pancreatitis. Patient reports vomiting has resolved that he still does have nausea. -Zofran PRN Qualifiers: Vomiting type: cyclical vomiting Vomiting Intractability: non-intractable Qualified Code(s): G43.A0 - Cyclical vomiting, not intractable (5) Tobacco abuse Current Visit: Yes Status: Chronic Assessment and plan: Hx of chronic tobacco abuse. Pt. not interested in quitting at this time. 14 mg nicotine patch ordered daily. (6) JESSICA (obstructive sleep apnea) Current Visit: Yes Status: Chronic Assessment and plan: History of JESSICA. CPAP ordered (7) HTN (hypertension) Current Visit: Yes Status: Chronic Assessment and plan: History of hypertension taking lisinopril a metoprolol. Blood pressure stable -Continue her medications Qualifiers: Hypertension type: essential hypertension Qualified Code(s): I10 - Essential (primary) hypertension (8) GERD (gastroesophageal reflux disease) Current Visit: Yes Status: Chronic Assessment and plan: History of known Gerd taking omeprazole -continue Protonix Qualifiers: Esophagitis presence: esophagitis presence not specified Qualified Code(s) : K21.9 - Gastro-esophageal reflux disease without esophagitis (9) Diabetes Current Visit: Yes Status: Chronic Assessment and plan: History of diabetes taking oral antihyperglycemic medications. 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 Likely secondary to dehydration and hypertriglyceridemia - Time Spent With Patient Total time spent is greater than 50% in coordination of care (as documented) at patient's floor/unit and/or counseling patient: - Subjective Interval history: 42yo male with PMH HTN, HLDm GERD presented to [facility] complaining of abdominal pain with nausea. Imaging and symptoms suggested acute pancreatitis. He reports that the abdominal pain has markedly improved and is only slightly tender the left lower quadrant. Denies chest pain, shortness of breath, fever, chills, nausea, vomiting. - Constitutional Vitals: Temp Pulse Resp BP Pulse Ox 98.8 F 68 18 129/84 97 03/25/18 07:04 03/25/18 07:04 03/25/18 07:04 03/25/18 07:04 03/25/18 07:04 General appearance: Present: cooperative, mild distress, A&O X 3, pleasant, answers questions appropriately Exam: Gen.: Vitals noted. No acute distress. AAOx3 HEENT: oropharynx clear, Normocephalic, atraumatic Neck: Supple. No adenopathy. Cardiac: RRR, no murmur, +S1/S2 Pulmonary: CTA bilaterally, no wheezes, rales or rhonchi, equal chest expansion Abdomen: soft, minimal left lower quadrant tender, Bowel sounds noted, no guarding Extremities: no BLE edema, nontender calf, no cyanosis or clubbing Neuro: A&Ox3, moves all extremities, no focal deficits Psych: Appropriate mood and behavior Internal Medicine: Result - Labs CBC & Chem 7: 03/25/18 06:07 03/25/18 06:07 Labs: Short CBC 03/25/18 Range/Units 06:07 WBC 7.5 (4.3-11.1) K/mcL Hgb 12.2 L (12.9-16.9) g/dL Hct 37.1 L (37.5-50.1) % Plt Count 172 (140-400) K/mcL Neutrophils # 4.7 (1.6-8.9) K/mcL BMP 03/25/18 06:07 Sodium 133 L Potassium 3.5 Chloride 102 Carbon Dioxide 24 BUN 7 Creatinine 0.77 Glucose 97 Calcium 8.5 L - ABG Interpretation ABG results: PT/INR, D-dimer PT TNP 03/23/18 09:49 - VTE Documentation of Mechanical Device: Intermittent pneumatic compression device Consult Discharge Plan - Plan Referrals: Diya Jain CNP [Primary Care Provider] - 04/05/18 9:45 am <Jean Marie Serrano - Last Filed: 03/25/18 20:21> Date of Encounter: 03/25/18 - Assessment and plan (1) Pancreatitis Current Visit: Yes Status: Acute Qualifiers: Chronicity: acute Pancreatitis type: unspecified pancreatitis type Acute pancreatitis complication: unspecified Qualified Code(s): K85.90 - Acute pancreatitis without necrosis or infection, unspecified (2) Diabetes Current Visit: Yes Status: Chronic Qualifiers: Diabetes mellitus type: type 2 Diabetes mellitus 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 insulin use: without retirement use Diabetes mellitus complication status: with unspecified complications Qualified Code(s): E11.8 - Type 2 diabetes mellitus with unspecified complications (3) GERD (gastroesophageal reflux disease) Current Visit: Yes Status: Chronic Qualifiers: Esophagitis presence: esophagitis presence not specified Qualified Code(s) : K21.9 - Gastro-esophageal reflux disease without esophagitis (4) HLD (hyperlipidemia) Current Visit: Yes Status: Chronic Qualifiers: Hyperlipidemia type: pure hypercholesterolemia Qualified Code(s): E78.00 - Pure hypercholesterolemia, unspecified; E78.0 - Pure hypercholesterolemia (5) HTN (hypertension) Current Visit: Yes Status: Chronic Qualifiers: Hypertension type: essential hypertension Qualified Code(s): I10 - Essential (primary) hypertension (6) DVT prophylaxis Current Visit: Yes Status: Acute (7) Nausea & vomiting Current Visit: Yes Status: Acute Qualifiers: Vomiting type: cyclical vomiting Vomiting Intractability: non-intractable Qualified Code(s): G43.A0 - Cyclical vomiting, not intractable (8) Tobacco abuse Current Visit: Yes Status: Chronic (9) JESSICA (obstructive sleep apnea) Current Visit: Yes Status: Chronic (10) Headache Current Visit: Yes Status: Acute Qualifiers: Headache type: tension-type Headache chronicity pattern: acute headache Intractability: not intractable Qualified Code(s): G44.209 - Tension-type headache, unspecified, not intractable (11) Hyponatremia Current Visit: Yes Status: Acute - Time Spent With Patient Total time spent is greater than 50% in coordination of care (as documented) at patient's floor/unit and/or counseling patient: - Constitutional Vitals: Temp Pulse Resp BP Pulse Ox 99.1 F 82 14 141/93 97 03/25/18 18:30 03/25/18 18:30 03/25/18 18:30 03/25/18 18:30 03/25/18 18:30 Internal Medicine: Result - Labs CBC & Chem 7: 03/25/18 06:07 03/25/18 16:05 Labs: Short CBC 04/26/18 Range/Units 06:07 WBC 7.5 (4.3-11.1) K/mcL Hgb 12.2 L (12.9-16.9) g/dL Hct 37.1 L (37.5-50.1) % Plt Count 172 (140-400) K/mcL Neutrophils # 4.7 (1.6-8.9) K/mcL BMP 03/25/18 03/25/18 06:07 16:05 Sodium 133 L 134 L Potassium 3.5 3.8 Chloride 102 101 Carbon Dioxide 24 27 BUN 7 7 Creatinine 0.77 0.84 Glucose 97 123 H Calcium 8.5 L 8.8 - ABG Interpretation ABG results: PT/INR, D-dimer PT TNP 03/23/18 09:49 - Attending Attestation I performed a history and physical examination of the patient and discussed his/ her management with the resident. I reviewed the residents note and agree with the documented findings and plan of care.
[2018-03-25] MEDS: Metoprolol XL (24 HR) Succ 50 MG TAB.ER.24H PO SCH (09:18)
[2018-03-25] MEDS: Pantoprazole 40 MG VIAL IVP SCH (09:18)
[2018-03-25] MEDS: Lisinopril 20 MG TABLET PO SCH (09:19)
[2018-03-25] MEDS: *HR* OxyCODONE Immed Rel 5 MG TABLET PO PRN (09:19)
[2018-03-25] MEDS: Aspirin Enteric Coated 81 MG Tablet PO SCH (09:19)
[2018-03-25] MEDS: Fenofibrate 54 MG TABLET PO SCH (09:19)
[2018-03-25] MEDS: Nicotine 14 MG PATCH.TD24 TD SCH (09:20)
[2018-03-25 17:06] LABS: BUN/Creatinine Ratio 8 (6-26); Blood Urea Nitrogen 7 mg/dL (6-20); Calcium 8.8 mg/dL (8.6-10.3); Carbon Dioxide 27 mEq/L (23-29); Chloride 101 mEq/L (98-107); Glucose 123 mg/dL (70-105); Osmolality,Calculated 277 (280-300); Potassium 3.8 mEq/L (3.5-5.1); Sodium 134 mEq/L (136-145); eGFR For African Americans > 60 (> 60); eGFR For Non-African Americans > 60 (> 60)
[2018-03-25] MEDS: *HR* HYDROcodone/Acet 5/325 mg TABLET PO PRN ×2 (17:25→23:40)
[2018-03-25] MEDS: Ibuprofen 400 MG TABLET PO PRN (22:43)
[2018-03-26 05:15] LABS: Basophils % 0.6 %; Eosinophils # 0.5 K/mcL (0.0-0.6); Eosinophils % 7.3 %; Hemoglobin 11.4 g/dL (12.9-16.9); Immature Granulocytes % 0.5 % (0-4); Lymphocytes % 30.9 %; Mean Corpuscular HGB Conc 32.6 g/dL (31.6-35.5); Mean Corpuscular Hemoglobin 26.9 pg (28.0-33.3); Mean Corpuscular Volume 82.5 fL (83.0-100.0); Mean Platelet Volume 11.1 fL (9.4-12.4); Monocytes # 0.6 K/mcL (0.0-1.3); Monocytes % 8.4 %; Neutrophils # 3.4 K/mcL (1.6-8.9); Platelet Count 184 K/mcL (140-400); Red Blood Count 4.24 M/mcL (4.19-5.50); Red Cell Distribution Width 14.7 % (11.5-14.5); Segmented Neutrophils % 52.3 %
[2018-03-26] MEDS: *HR* Heparin 5,000 UNIT/ML VIAL SQ SCH ×3 (05:51→22:09)
[2018-03-26 06:46] LABS: Triglycerides 1653 mg/dL (< 150)
[2018-03-26 07:01] LABS: BUN/Creatinine Ratio 11 (6-26); Blood Urea Nitrogen 9 mg/dL (6-20); Calcium 8.4 mg/dL (8.6-10.3); Carbon Dioxide 23 mEq/L (23-29); Chloride 105 mEq/L (98-107); Glucose 124 mg/dL (70-105); Osmolality,Calculated 280 (280-300); Potassium 3.3 mEq/L (3.5-5.1); Sodium 135 mEq/L (136-145); eGFR For African Americans > 60 (> 60); eGFR For Non-African Americans > 60 (> 60)
[2018-03-26] MEDS: Fenofibrate 54 MG TABLET PO SCH (08:40)
[2018-03-26] MEDS: Pantoprazole 40 MG VIAL IVP SCH (08:40)
[2018-03-26] MEDS: Lisinopril 20 MG TABLET PO SCH (08:40)
[2018-03-26] MEDS: Aspirin Enteric Coated 81 MG Tablet PO SCH (08:40)
[2018-03-26] MEDS: Metoprolol XL (24 HR) Succ 50 MG TAB.ER.24H PO SCH (08:40)
[2018-03-26] MEDS: Nicotine 14 MG PATCH.TD24 TD SCH (08:40)
[2018-03-26] MEDS: D5% in 0.45% NACL w KCl 20 MEQ/1,000 ML MLS IVC SCH ×2 (08:41)
--- NOTE | 2018-03-26 09:14 | Internal Med Progress Note ---
Date of Encounter: 03/26/18 Time of Encounter: 09:05 - Assessment and plan (1) Pancreatitis Current Visit: Yes Status: Acute Assessment and plan: Hypertriglyceridemia induced acute pancreatitis demonstrated by abdominal CT along with acute onset of abdominal pain. History of acute pancreatitis 3 years ago at [facility] secondary to hypertriglyceridemia. He has an appointment at [facility] in April to evaluate his hypertriglyceridemia. He takes Tricor and atorvastatin. He reported that he has not taken his medications in 2 weeks. He has received IV fluid bolus. Abd CT acute pancreatitis, hepatomegaly, steatosis. Gallbladder ultrasound demonstrated no stones Triglycerides to 1653 (4023) Lipase 34 amylase 28 AST 11 ALT 16 -patient is clinically improving. He reports his abdominal pain has significantly improved with only minimally tender in left lower quadrant. Plan -Insulin drip due to hypertriglyceridemia, along with 5% dextrose saline infusion to prevent hypoglycemia -pain management with norco prn -Zofran for nausea -begin clear liquid diet for breakfast and will advance diet is tolerated -recheck triglycerides in a.m. possible discharge tomorrow Qualifiers: Chronicity: acute Pancreatitis type: unspecified pancreatitis type Acute pancreatitis complication: unspecified Qualified Code(s): K85.90 - Acute pancreatitis without necrosis or infection, unspecified (2) HLD (hyperlipidemia) Current Visit: Yes Status: Chronic Assessment and plan: History of known hyperlipidemia taking atorvastatin and Tricor. -Continue atorvastatin and TriCor Qualifiers: Hyperlipidemia type: pure hypercholesterolemia Qualified Code(s): E78.00 - Pure hypercholesterolemia, unspecified; E78.0 - Pure hypercholesterolemia (3) Headache Current Visit: Yes Status: Acute Assessment and plan: Resolved Tension type headache that starts from the base of his neck and goes to his forehead. He reports watery eyes drainage. Denies vision changes such as blurry vision, spots in vision, loss of vision. He reported ibuprofen taken at home seem to help to relieve the pain. He denied complaining of headache today. -Continue ibuprofen as needed for pain Qualifiers: Headache type: tension-type Headache chronicity pattern: acute headache Intractability: not intractable Qualified Code(s): G44.209 - Tension-type headache, unspecified, not intractable (4) Nausea & vomiting Current Visit: Yes Status: Acute Assessment and plan: Resolved Acute nausea and vomiting secondary to pancreatitis. Patient reports vomiting has resolved that he still does have nausea. -Zofran PRN Qualifiers: Vomiting type: cyclical vomiting Vomiting Intractability: non-intractable Qualified Code(s): G43.A0 - Cyclical vomiting, not intractable (5) Tobacco abuse Current Visit: Yes Status: Chronic Assessment and plan: Hx of chronic tobacco abuse. Pt. not interested in quitting at this time. 14 mg nicotine patch ordered daily. (6) JESSICA (obstructive sleep apnea) Current Visit: Yes Status: Chronic Assessment and plan: History of JESSICA. CPAP ordered (7) Hyponatremia Current Visit: Yes Status: Acute Assessment and plan: Resolved. Likely secondary to dehydration and hypertriglyceridemia (8) HTN (hypertension) Current Visit: Yes Status: Chronic Assessment and plan: History of hypertension taking lisinopril a metoprolol. Blood pressure stable -Continue her medications Qualifiers: Hypertension type: essential hypertension Qualified Code(s): I10 - Essential (primary) hypertension (9) GERD (gastroesophageal reflux disease) Current Visit: Yes Status: Chronic Assessment and plan: History of known Gerd taking omeprazole -continue Protonix Qualifiers: Esophagitis presence: esophagitis presence not specified Qualified Code(s) : K21.9 - Gastro-esophageal reflux disease without esophagitis (10) Diabetes Current Visit: Yes Status: Chronic Assessment and plan: History of diabetes taking oral antihyperglycemic medications. -On insulin sliding scale due to hypertriglyceridemia induced pancreatitis -continue Accu checks -A1C 9.8, likely due to noncompliance with medications since patient admitted that he has not been compliant. Will advise him to follow up with his PCP on better glucose control. Qualifiers: Diabetes mellitus type: type 2 Diabetes mellitus senior living insulin use: without senior living use Diabetes mellitus complication status: with unspecified complications Qualified Code(s): E11.8 - Type 2 diabetes mellitus with unspecified complications (11) DVT prophylaxis Current Visit: Yes Status: Acute Assessment and plan: Heparin sq - Time Spent With Patient Total time spent is greater than 50% in coordination of care (as documented) at patient's floor/unit and/or counseling patient: - Subjective Interval history: 42yo male with PMH HTN, HLDm GERD presented to [facility] complaining of abdominal pain with nausea. Imaging and symptoms suggested acute pancreatitis. He reports abdominal pain has markedly improved and only minimal tenderness to the left lower quadrant. Denies chest pain, shortness of breath, fever, chills, nausea, vomiting. Reports that today he feels like eating. - Constitutional Vitals: Temp Pulse Resp BP Pulse Ox 97.9 F 78 16 131/86 98 03/26/18 07:29 03/26/18 07:29 03/26/18 07:29 03/26/18 07:29 03/26/18 07:29 General appearance: Present: cooperative, mild distress, A&O X 3, pleasant, answers questions appropriately Exam: Gen.: Vitals noted. No acute distress. AAOx3 HEENT: oropharynx clear, Normocephalic, atraumatic Cardiac: RRR, no murmur, +S1/S2 Pulmonary: CTA bilaterally, no wheezes, rales or rhonchi, equal chest expansion Abdomen: soft, minimal tender LLQ, Bowel sounds noted, no guarding MSK: ROM intact, no joint swelling noted Extremities: no BLE edema, nontender calf, no cyanosis or clubbing Neuro: A&Ox3, moves all extremities, no focal deficits Psych: Appropriate mood and behavior Internal Medicine: Result - Labs CBC & Chem 7: 03/26/18 04:42 03/26/18 04:42 Labs: Short CBC 03/26/18 Range/Units 04:42 WBC 6.6 (4.3-11.1) K/mcL Hgb 11.4 L (12.9-16.9) g/dL Hct 35.0 L (37.5-50.1) % Plt Count 184 (140-400) K/mcL Neutrophils # 3.4 (1.6-8.9) K/mcL BMP 03/25/18 03/26/18 16:05 04:42 Sodium 134 L 135 L Potassium 3.8 3.3 L Chloride 101 105 Carbon Dioxide 27 23 BUN 7 9 Creatinine 0.84 0.79 Glucose 123 H 124 H Calcium 8.8 8.4 L - ABG Interpretation ABG results: PT/INR, D-dimer PT TNP 03/23/18 09:49 - VTE Documentation of Mechanical Device: Intermittent pneumatic compression device Consult Discharge Plan - Plan Referrals: Diya Jain CNP [Primary Care Provider] - 04/05/18 9:45 am
[2018-03-26] MEDS: Insulin Human Regular 100 UNIT in 0.9 % Sodium Chloride 100 ML IVC SCH (11:49)
[2018-03-26] MEDS ORDERED: D5% in 0.45% NACL w KCl 20 MEQ/1,000 ML MLS IVC SCH (13:52)
--- NOTE | 2018-03-26 17:40 | Electrocardiograph Report ---
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
[2018-03-27] MEDS: *HR* Heparin 5,000 UNIT/ML VIAL SQ SCH ×3 (05:55→21:33)
[2018-03-27 06:20] LABS: Hematocrit 38.3 % (37.5-50.1); Hemoglobin 12.5 g/dL (12.9-16.9); Mean Corpuscular HGB Conc 32.6 g/dL (31.6-35.5); Mean Corpuscular Hemoglobin 27.2 pg (28.0-33.3); Mean Corpuscular Volume 83.4 fL (83.0-100.0); Mean Platelet Volume 10.8 fL (9.4-12.4); Platelet Count 213 K/mcL (140-400); Red Blood Count 4.59 M/mcL (4.19-5.50); Red Cell Distribution Width 14.8 % (11.5-14.5)
[2018-03-27 06:55] LABS: BUN/Creatinine Ratio 8 (6-26); Blood Urea Nitrogen 8 mg/dL (6-20); Calcium 8.8 mg/dL (8.6-10.3); Carbon Dioxide 24 mEq/L (23-29); Chloride 101 mEq/L (98-107); Glucose 121 mg/dL (70-105); Osmolality,Calculated 276 (280-300); Potassium 3.7 mEq/L (3.5-5.1); Sodium 133 mEq/L (136-145); Triglycerides 1849 mg/dL (< 150); eGFR For African Americans > 60 (> 60); eGFR For Non-African Americans > 60 (> 60)
[2018-03-27] MEDS ORDERED: Insulin Human Regular 100 UNIT in 0.9 % Sodium Chloride 100 ML IVC SCH ×3 (07:44→09:55)
[2018-03-27] MEDS: Metoprolol XL (24 HR) Succ 50 MG TAB.ER.24H PO SCH (08:42)
[2018-03-27] MEDS: Aspirin Enteric Coated 81 MG Tablet PO SCH (08:42)
[2018-03-27] MEDS: Lisinopril 20 MG TABLET PO SCH (08:42)
[2018-03-27] MEDS: Fenofibrate 54 MG TABLET PO SCH (08:43)
[2018-03-27] MEDS: Nicotine 14 MG PATCH.TD24 TD SCH ×2 (08:43→18:29)
--- NOTE | 2018-03-27 08:55 | Internal Med Progress Note ---
<Lana Carlton - Last Filed: 03/27/18 08:52> Date of Encounter: 03/27/18 Time of Encounter: 07:30 - Assessment and plan (1) Pancreatitis Current Visit: Yes Status: Acute Assessment and plan: Hypertriglyceridemia induced acute pancreatitis demonstrated by abdominal CT along with acute onset of abdominal pain. History of acute pancreatitis 3 years ago at [facility] secondary to hypertriglyceridemia. He has an appointment at [facility] in April to evaluate his hypertriglyceridemia. He takes Tricor and atorvastatin. He reported that he has not taken his medications in 2 weeks. He has received IV fluid bolus. Abd CT acute pancreatitis, hepatomegaly, steatosis. Gallbladder ultrasound demonstrated no stones Triglycerides to 1849 increased from yesterday (1653) (4023) Lipase 34 amylase 28 AST 11 ALT 16 -patient is clinically improving. He reports his abdominal pain has resolved and is only minimally tender with palpation to right upper quadrant. Plan -Unable to discharge today due to triglycerides increased from yesterday likely secondary to resuming full diabetic diet. -Insulin drip due to hypertriglyceridemia, along with 5% dextrose saline infusion to prevent hypoglycemia. Insulin drip-decreased but now resuming 0.1 units/kg due to increase in triglycerides. With dextrose saline infusion at rate of 175ml/hr, will increase rate is glucose checks are below 100 -able to de-escalate pain management to ibuprofen -Zofran for nausea -tolerating diabetic/cardiac diet well -recheck triglycerides in a.m. possible discharge tomorrow Qualifiers: Chronicity: acute Pancreatitis type: unspecified pancreatitis type Acute pancreatitis complication: unspecified Qualified Code(s): K85.90 - Acute pancreatitis without necrosis or infection, unspecified (2) HLD (hyperlipidemia) Current Visit: Yes Status: Chronic Assessment and plan: History of known hyperlipidemia taking atorvastatin and Tricor. -Continue atorvastatin and TriCor Qualifiers: Hyperlipidemia type: pure hypercholesterolemia Qualified Code(s): E78.00 - Pure hypercholesterolemia, unspecified; E78.0 - Pure hypercholesterolemia (3) Headache Current Visit: Yes Status: Acute Assessment and plan: Resolved Tension type headache that starts from the base of his neck and goes to his forehead. He reports watery eyes drainage. Denies vision changes such as blurry vision, spots in vision, loss of vision. He reported ibuprofen taken at home seem to help to relieve the pain. He denied complaining of headache today. -Continue ibuprofen as needed for pain Qualifiers: Headache type: tension-type Headache chronicity pattern: acute headache Intractability: not intractable Qualified Code(s): G44.209 - Tension-type headache, unspecified, not intractable (4) Nausea & vomiting Current Visit: Yes Status: Acute Assessment and plan: Resolved Acute nausea and vomiting secondary to pancreatitis. Patient reports vomiting has resolved that he still does have nausea. -Zofran PRN Qualifiers: Vomiting type: cyclical vomiting Vomiting Intractability: non-intractable Qualified Code(s): G43.A0 - Cyclical vomiting, not intractable (5) Tobacco abuse Current Visit: Yes Status: Chronic Assessment and plan: Hx of chronic tobacco abuse. Pt. not interested in quitting at this time. 14 mg nicotine patch ordered daily. (6) JESSICA (obstructive sleep apnea) Current Visit: Yes Status: Chronic Assessment and plan: History of JESSICA. CPAP ordered (7) HTN (hypertension) Current Visit: Yes Status: Chronic Assessment and plan: History of hypertension taking lisinopril a metoprolol. Blood pressure stable -Continue her medications Qualifiers: Hypertension type: essential hypertension Qualified Code(s): I10 - Essential (primary) hypertension (8) GERD (gastroesophageal reflux disease) Current Visit: Yes Status: Chronic Assessment and plan: History of known Gerd taking omeprazole -continue Protonix Qualifiers: Esophagitis presence: esophagitis presence not specified Qualified Code(s) : K21.9 - Gastro-esophageal reflux disease without esophagitis (9) Diabetes Current Visit: Yes Status: Chronic Assessment and plan: History of diabetes taking oral antihyperglycemic medications. -On insulin sliding scale due to hypertriglyceridemia induced pancreatitis -continue Accu checks -A1C 9.8, likely due to noncompliance with medications since patient admitted that he has not been compliant. Will advise him to follow up with his PCP on better glucose control. 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 Likely secondary to dehydration and hypertriglyceridemia - Time Spent With Patient Total time spent is greater than 50% in coordination of care (as documented) at patient's floor/unit and/or counseling patient: - Subjective Interval history: 42yo male with PMH HTN, HLDm GERD presented to [facility] complaining of abdominal pain with nausea. Imaging and symptoms suggested acute pancreatitis. He reports abdominal pain has markedly improved and only minimal tenderness with palpation to the right upper quadrant. Denies chest pain, shortness of breath, fever, chills, nausea, vomiting. He tolerated full diabetic diet well. - Constitutional Vitals: Temp Pulse Resp BP Pulse Ox 97.7 F 68 20 106/66 97 03/27/18 07:04 03/27/18 07:04 03/27/18 07:04 03/27/18 07:04 03/27/18 07:04 General appearance: Present: cooperative, mild distress, A&O X 3, pleasant, answers questions appropriately Exam: Gen.: Vitals noted. No acute distress. AAOx3 HEENT: oropharynx clear, Normocephalic, atraumatic Neck: Supple. No adenopathy. Cardiac: RRR, no murmur, +S1/S2 Pulmonary: CTA bilaterally, no wheezes, rales or rhonchi, equal chest expansion Abdomen: soft, minimal right upper quadrant tender, Bowel sounds noted, no guarding MSK: ROM intact, no joint swelling noted Extremities: no BLE edema, nontender calf, no cyanosis or clubbing Neuro: A&Ox3, moves all extremities, no focal deficits Psych: Appropriate mood and behavior Internal Medicine: Result - Labs CBC & Chem 7: 03/27/18 05:42 03/27/18 05:42 Labs: Short CBC 03/27/18 Range/Units 05:42 WBC 6.9 (4.3-11.1) K/mcL Hgb 12.5 L (12.9-16.9) g/dL Hct 38.3 (37.5-50.1) % Plt Count 213 (140-400) K/mcL BMP 03/27/18 05:42 Sodium 133 L Potassium 3.7 Chloride 101 Carbon Dioxide 24 BUN 8 Creatinine 0.98 Glucose 121 H Calcium 8.8 - ABG Interpretation ABG results: PT/INR, D-dimer PT TNP 03/23/18 09:49 - VTE Documentation of Mechanical Device: Intermittent pneumatic compression device Consult Discharge Plan - Plan Referrals: Diya Jain CNP [Primary Care Provider] - 04/05/18 9:45 am <Jean Marie Serrano - Last Filed: 03/27/18 13:01> Date of Encounter: 03/27/18 - Assessment and plan (1) Pancreatitis Current Visit: Yes Status: Acute Qualifiers: Chronicity: acute Pancreatitis type: unspecified pancreatitis type Acute pancreatitis complication: unspecified Qualified Code(s): K85.90 - Acute pancreatitis without necrosis or infection, unspecified (2) Diabetes Current Visit: Yes Status: Chronic Qualifiers: Diabetes mellitus type: type 2 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 insulin use: without residential use Diabetes mellitus complication status: with unspecified complications Qualified Code(s): E11.8 - Type 2 diabetes mellitus with unspecified complications (3) GERD (gastroesophageal reflux disease) Current Visit: Yes Status: Chronic Qualifiers: Esophagitis presence: esophagitis presence not specified Qualified Code(s) : K21.9 - Gastro-esophageal reflux disease without esophagitis (4) HLD (hyperlipidemia) Current Visit: Yes Status: Chronic Qualifiers: Hyperlipidemia type: pure hypercholesterolemia Qualified Code(s): E78.00 - Pure hypercholesterolemia, unspecified; E78.0 - Pure hypercholesterolemia (5) HTN (hypertension) Current Visit: Yes Status: Chronic Qualifiers: Hypertension type: essential hypertension Qualified Code(s): I10 - Essential (primary) hypertension (6) DVT prophylaxis Current Visit: Yes Status: Acute (7) Nausea & vomiting Current Visit: Yes Status: Acute Qualifiers: Vomiting type: cyclical vomiting Vomiting Intractability: non-intractable Qualified Code(s): G43.A0 - Cyclical vomiting, not intractable (8) Tobacco abuse Current Visit: Yes Status: Chronic (9) JESSICA (obstructive sleep apnea) Current Visit: Yes Status: Chronic (10) Headache Current Visit: Yes Status: Acute Qualifiers: Headache type: tension-type Headache chronicity pattern: acute headache Intractability: not intractable Qualified Code(s): G44.209 - Tension-type headache, unspecified, not intractable (11) Hyponatremia Current Visit: Yes Status: Acute - Time Spent With Patient Total time spent is greater than 50% in coordination of care (as documented) at patient's floor/unit and/or counseling patient: - Constitutional Vitals: Temp Pulse Resp BP Pulse Ox 98.2 F 72 18 135/89 97 03/27/18 11:35 03/27/18 11:35 03/27/18 11:35 03/27/18 11:35 03/27/18 11:35 Internal Medicine: Result - Labs CBC & Chem 7: 03/27/18 05:42 03/27/18 05:42 Labs: Short CBC 03/27/18 Range/Units 05:42 WBC 6.9 (4.3-11.1) K/mcL Hgb 12.5 L (12.9-16.9) g/dL Hct 38.3 (37.5-50.1) % Plt Count 213 (140-400) K/mcL BMP 03/27/18 05:42 Sodium 133 L Potassium 3.7 Chloride 101 Carbon Dioxide 24 BUN 8 Creatinine 0.98 Glucose 121 H Calcium 8.8 - ABG Interpretation ABG results: PT/INR, D-dimer PT TNP 03/23/18 09:49 - Attending Attestation I performed a history and physical examination of the patient and discussed his/ her management with the resident. I reviewed the residents note and agree with the documented findings and plan of care.
[2018-03-27] MEDS: D5% in 0.45% NACL w KCl 20 MEQ/1,000 ML MLS IVC SCH ×2 (09:57→18:32)
[2018-03-27 13:52] LABS: BUN/Creatinine Ratio 9 (6-26); Blood Urea Nitrogen 9 mg/dL (6-20); Carbon Dioxide 20 mEq/L (23-29); Chloride 104 mEq/L (98-107); Glucose 167 mg/dL (70-105); Osmolality,Calculated 278 (280-300); Sodium 133 mEq/L (136-145); eGFR For African Americans > 60 (> 60); eGFR For Non-African Americans > 60 (> 60)
[2018-03-27] MEDS: Insulin Human Regular 100 UNIT in 0.9 % Sodium Chloride 100 ML IVC SCH (18:15)
[2018-03-27] MEDS ORDERED: Insulin LISPRO 300 UNITS/3 ML VIAL SQ SCH (21:00)
[2018-03-27 21:41] LABS: BUN/Creatinine Ratio 10 (6-26); Blood Urea Nitrogen 11 mg/dL (6-20); Calcium 9.7 mg/dL (8.6-10.3); Carbon Dioxide 17 mEq/L (23-29); Chloride 109 mEq/L (98-107); Glucose 89 mg/dL (70-105); Osmolality,Calculated 283 (280-300); Potassium 4.7 mEq/L (3.5-5.1); Sodium 137 mEq/L (136-145); eGFR For African Americans > 60 (> 60); eGFR For Non-African Americans > 60 (> 60)
[2018-03-28] MEDS: Insulin Human Regular 100 UNIT in 0.9 % Sodium Chloride 100 ML IVC SCH ×4 (01:34→22:34)
[2018-03-28] MEDS: D5% in 0.45% NACL w KCl 20 MEQ/1,000 ML MLS IVC SCH ×3 (02:08→08:55)
[2018-03-28] MEDS: *HR* Heparin 5,000 UNIT/ML VIAL SQ SCH ×3 (06:02→22:11)
[2018-03-28 06:58] LABS: BUN/Creatinine Ratio 9 (6-26); Blood Urea Nitrogen 9 mg/dL (6-20); Calcium 8.8 mg/dL (8.6-10.3); Carbon Dioxide 25 mEq/L (23-29); Chloride 104 mEq/L (98-107); Glucose 110 mg/dL (70-105); Osmolality,Calculated 285 (280-300); Sodium 138 mEq/L (136-145); Triglycerides 1602 mg/dL (< 150); eGFR For African Americans > 60 (> 60); eGFR For Non-African Americans > 60 (> 60)
[2018-03-28] MEDS ORDERED: Insulin LISPRO 300 UNITS/3 ML VIAL SQ SCH (07:30)
--- NOTE | 2018-03-28 07:57 | Internal Med Progress Note ---
Date of Encounter: 03/28/18 Time of Encounter: 07:54 - Assessment and plan (1) Pancreatitis Current Visit: Yes Status: Acute Assessment and plan: Hypertriglyceridemia induced acute pancreatitis demonstrated by abdominal CT along with acute onset of abdominal pain. History of acute pancreatitis 3 years ago at [facility] secondary to hypertriglyceridemia. He has an appointment at [facility] in April to evaluate his hypertriglyceridemia. He takes Tricor and atorvastatin. He reported that he has not taken his medications in 2 weeks. He has received IV fluid bolus. Abd CT acute pancreatitis, hepatomegaly, steatosis. Gallbladder ultrasound demonstrated no stones Triglycerides 1602 (1849)(4023) Lipase 34 amylase 28 AST 11 ALT 16 -patient is clinically improving. He reports his abdominal pain has resolved and is only minimally tender with palpation to right upper quadrant. Plan -triglycerides are still elevated. Will increase insulin drip to 0.2 units/kg along with 10% dextrose saline infusion to prevent hypoglycemia. -able to de-escalate pain management to ibuprofen -Zofran for nausea -tolerating diabetic/cardiac diet well -recheck triglycerides at 3pm goal is below 1000 Qualifiers: Chronicity: acute Pancreatitis type: unspecified pancreatitis type Acute pancreatitis complication: unspecified Qualified Code(s): K85.90 - Acute pancreatitis without necrosis or infection, unspecified (2) HLD (hyperlipidemia) Current Visit: Yes Status: Chronic Assessment and plan: History of known hyperlipidemia taking atorvastatin and Tricor. -Continue atorvastatin and TriCor Qualifiers: Hyperlipidemia type: pure hypercholesterolemia Qualified Code(s): E78.00 - Pure hypercholesterolemia, unspecified; E78.0 - Pure hypercholesterolemia (3) Headache Current Visit: Yes Status: Acute Assessment and plan: Resolved Tension type headache that starts from the base of his neck and goes to his forehead. He reports watery eyes drainage. Denies vision changes such as blurry vision, spots in vision, loss of vision. He reported ibuprofen taken at home seem to help to relieve the pain. He denied complaining of headache today. -Continue ibuprofen as needed for pain Qualifiers: Headache type: tension-type Headache chronicity pattern: acute headache Intractability: not intractable Qualified Code(s): G44.209 - Tension-type headache, unspecified, not intractable (4) Nausea & vomiting Current Visit: Yes Status: Acute Assessment and plan: Resolved Acute nausea and vomiting secondary to pancreatitis. Patient reports vomiting has resolved that he still does have nausea. -Zofran PRN Qualifiers: Vomiting type: cyclical vomiting Vomiting Intractability: non-intractable Qualified Code(s): G43.A0 - Cyclical vomiting, not intractable (5) Tobacco abuse Current Visit: Yes Status: Chronic Assessment and plan: Hx of chronic tobacco abuse. Pt. not interested in quitting at this time. 14 mg nicotine patch ordered daily. (6) JESSICA (obstructive sleep apnea) Current Visit: Yes Status: Chronic Assessment and plan: History of JESSICA. CPAP ordered (7) Hyponatremia Current Visit: Yes Status: Acute Assessment and plan: Resolved. Likely secondary to dehydration and hypertriglyceridemia (8) HTN (hypertension) Current Visit: Yes Status: Chronic Assessment and plan: History of hypertension taking lisinopril a metoprolol. Blood pressure stable -Continue her medications Qualifiers: Hypertension type: essential hypertension Qualified Code(s): I10 - Essential (primary) hypertension (9) GERD (gastroesophageal reflux disease) Current Visit: Yes Status: Chronic Assessment and plan: History of known Gerd taking omeprazole -continue Protonix Qualifiers: Esophagitis presence: esophagitis presence not specified Qualified Code(s) : K21.9 - Gastro-esophageal reflux disease without esophagitis (10) Diabetes Current Visit: Yes Status: Chronic Assessment and plan: History of diabetes taking oral antihyperglycemic medications. -On insulin sliding scale due to hypertriglyceridemia induced pancreatitis -continue Accu checks -A1C 9.8, likely due to noncompliance with medications since patient admitted that he has not been compliant. Will advise him to follow up with his PCP on better glucose control. Qualifiers: Diabetes mellitus type: type 2 Diabetes mellitus assisted insulin use: without assisted use Diabetes mellitus complication status: with unspecified complications Qualified Code(s): E11.8 - Type 2 diabetes mellitus with unspecified complications (11) DVT prophylaxis Current Visit: Yes Status: Acute Assessment and plan: Heparin sq - Time Spent With Patient Total time spent is greater than 50% in coordination of care (as documented) at patient's floor/unit and/or counseling patient: - Subjective Interval history: 42yo male with PMH HTN, HLDm GERD presented to [facility] complaining of abdominal pain with nausea. Imaging and symptoms suggested acute pancreatitis. He reports abdominal pain has markedly improved and only minimal tenderness with palpation to the right upper quadrant. Denies chest pain, shortness of breath, fever, chills, nausea, vomiting. He tolerated full diabetic diet well. - Constitutional Vitals: Temp Pulse Resp BP Pulse Ox 97.1 F L 60 16 136/92 98 03/28/18 06:35 03/28/18 06:35 03/28/18 06:35 03/28/18 06:35 03/28/18 06:35 General appearance: Present: cooperative, mild distress, A&O X 3, pleasant, answers questions appropriately Exam: Gen.: Vitals noted. No acute distress. AAOx3 HEENT:oropharynx clear, Normocephalic, atraumatic Cardiac: RRR, no murmur, +S1/S2 Pulmonary: CTA bilaterally, no wheezes, rales or rhonchi, equal chest expansion Abdomen: soft, minimal epigastric tender, Bowel sounds noted, no guarding MSK: ROM intact, no joint swelling noted Extremities: no BLE edema, nontender calf, no cyanosis or clubbing Neuro: A&Ox3, moves all extremities, no focal deficits Psych: Appropriate mood and behavior Internal Medicine: Result - Labs CBC & Chem 7: 03/27/18 05:42 03/28/18 05:35 Labs: BMP 03/27/18 03/27/18 03/28/18 13:15 20:31 05:35 Sodium 133 L 137 138 Potassium 4.0 4.7 4.0 Chloride 104 109 H 104 Carbon Dioxide 20 L 17 L 25 BUN 9 11 9 Creatinine 1.01 1.08 1.00 Glucose 167 H 89 110 H Calcium 9.0 9.7 8.8 - ABG Interpretation ABG results: PT/INR, D-dimer PT TNP 03/23/18 09:49 - VTE Documentation of Mechanical Device: Intermittent pneumatic compression device Consult Discharge Plan - Plan Referrals: Cristobal,Diya Will CNP [Primary Care Provider] - 04/05/18 9:45 am
[2018-03-28] MEDS: Metoprolol XL (24 HR) Succ 50 MG TAB.ER.24H PO SCH (08:53)
[2018-03-28] MEDS: Ibuprofen 400 MG TABLET PO PRN ×2 (08:53→22:12)
[2018-03-28] MEDS: Lisinopril 20 MG TABLET PO SCH (08:54)
[2018-03-28] MEDS: Fenofibrate 54 MG TABLET PO SCH (08:54)
[2018-03-28] MEDS: Aspirin Enteric Coated 81 MG Tablet PO SCH (08:54)
[2018-03-28] MEDS: Nicotine 14 MG PATCH.TD24 TD SCH (09:00)
[2018-03-28] MEDS ORDERED: WATER IVC SCH ×2 (11:00→11:45)
[2018-03-28] MEDS ORDERED: D10 IVC SCH (11:00)
[2018-03-28] MEDS ORDERED: DEXTROSE 50% IVC SCH ×2 (11:00→11:45)
[2018-03-28] MEDS ORDERED: [UNRECOGNIZED DRUG - OTHER] IVC SCH (11:00)
[2018-03-28] MEDS ORDERED: POTASSIUM CHLORIDE IVC SCH ×2 (11:00→11:45)
[2018-03-28] MEDS ORDERED: [UNRECOGNIZED DRUG - OTHER] IVC SCH (11:45)
[2018-03-28] MEDS ORDERED: D5 IVC SCH (11:45)
[2018-03-28] MEDS ORDERED: Dextrose 50 % in Water (Vial) 100 ML in D5% in 0.45% NACL 1,000 ML IVC SCH (12:45)
[2018-03-28] MEDS ORDERED: Niacin (24 HR) 500 MG TAB.ER.24H PO STA (14:01)
[2018-03-28] MEDS: *HR* Dextrose 50 % in Water (Syg) 50 ML SYRINGE IVP PRN ×2 (19:38→20:35)
[2018-03-28] MEDS: Dextrose 50 % in Water (Vial) 100 ML in D5% in 0.45% NACL 1,000 ML IVC SCH (21:39)
[2018-03-29] MEDS: Insulin Human Regular 100 UNIT in 0.9 % Sodium Chloride 100 ML IVC SCH ×4 (02:45→19:41)
[2018-03-29] MEDS: Dextrose 50 % in Water (Vial) 100 ML in D5% in 0.45% NACL 1,000 ML IVC SCH ×4 (03:26→23:17)
[2018-03-29] MEDS: *HR* Heparin 5,000 UNIT/ML VIAL SQ SCH ×3 (06:10→21:45)
[2018-03-29] MEDS: Lisinopril 20 MG TABLET PO SCH (08:30)
[2018-03-29] MEDS: Metoprolol XL (24 HR) Succ 50 MG TAB.ER.24H PO SCH (08:30)
[2018-03-29] MEDS: Nicotine 14 MG PATCH.TD24 TD SCH (08:31)
[2018-03-29] MEDS: Aspirin Enteric Coated 81 MG Tablet PO SCH (08:31)
[2018-03-29] MEDS: Fenofibrate 54 MG TABLET PO SCH (08:35)
[2018-03-29 09:25] LABS: BUN/Creatinine Ratio 9 (6-26); Blood Urea Nitrogen 9 mg/dL (6-20); Calcium 9.1 mg/dL (8.6-10.3); Carbon Dioxide 27 mEq/L (23-29); Chloride 105 mEq/L (98-107); Glucose 147 mg/dL (70-105); Osmolality,Calculated 283 (280-300); Potassium 4.3 mEq/L (3.5-5.1); Sodium 136 mEq/L (136-145); eGFR For African Americans > 60 (> 60); eGFR For Non-African Americans > 60 (> 60)
--- NOTE | 2018-03-29 09:35 | Internal Med Progress Note ---
<Lana Carlton - Last Filed: 03/29/18 13:28> Date of Encounter: 03/29/18 Time of Encounter: 09:32 - Assessment and plan (1) Pancreatitis Current Visit: Yes Status: Acute Assessment and plan: Hypertriglyceridemia induced acute pancreatitis demonstrated by abdominal CT along with acute onset of abdominal pain. History of acute pancreatitis 3 years ago at [facility] secondary to hypertriglyceridemia. He has an appointment at [facility] in April to evaluate his hypertriglyceridemia. He takes Tricor and atorvastatin. He reported that he has not taken his medications in 2 weeks. He has received IV fluid bolus. Abd CT acute pancreatitis, hepatomegaly, steatosis. Gallbladder ultrasound demonstrated no stones Triglycerides 1391 (1849)([id number]) Lipase 34 amylase 28 AST 11 ALT 16 -patient is clinically improving. He reports his abdominal pain has resolved. Denies nausea, vomiting, fever, chills. Plan -triglycerides are still elevated. Will increase insulin drip to 0.2 units/kg along with 10% dextrose saline infusion to prevent hypoglycemia. -Increased home atorvastatin to 80 mg -restarted patient's TriCor -started niacin -able to de-escalate pain management to ibuprofen -Zofran for nausea -tolerating diabetic/cardiac diet well -triglycerides goal is below 1000 Qualifiers: Chronicity: acute Pancreatitis type: unspecified pancreatitis type Acute pancreatitis complication: unspecified Qualified Code(s): K85.90 - Acute pancreatitis without necrosis or infection, unspecified (2) HLD (hyperlipidemia) Current Visit: Yes Status: Chronic Assessment and plan: History of known hyperlipidemia taking atorvastatin and Tricor. -Increased home atorvastatin to 80 mg -restarted patient's TriCor -started niacin Qualifiers: Hyperlipidemia type: pure hypercholesterolemia Qualified Code(s): E78.00 - Pure hypercholesterolemia, unspecified; E78.0 - Pure hypercholesterolemia (3) Headache Current Visit: Yes Status: Acute Assessment and plan: Resolved Tension type headache that starts from the base of his neck and goes to his forehead. He reports watery eyes drainage. Denies vision changes such as blurry vision, spots in vision, loss of vision. He reported ibuprofen taken at home seem to help to relieve the pain. He denied complaining of headache today. -Continue ibuprofen as needed for pain Qualifiers: Headache type: tension-type Headache chronicity pattern: acute headache Intractability: not intractable Qualified Code(s): G44.209 - Tension-type headache, unspecified, not intractable (4) Nausea & vomiting Current Visit: Yes Status: Acute Assessment and plan: Resolved Acute nausea and vomiting secondary to pancreatitis. Patient reports vomiting has resolved that he still does have nausea. -Zofran PRN Qualifiers: Vomiting type: cyclical vomiting Vomiting Intractability: non-intractable Qualified Code(s): G43.A0 - Cyclical vomiting, not intractable (5) Tobacco abuse Current Visit: Yes Status: Chronic Assessment and plan: Hx of chronic tobacco abuse. Pt. not interested in quitting at this time. 14 mg nicotine patch ordered daily. (6) JESSICA (obstructive sleep apnea) Current Visit: Yes Status: Chronic Assessment and plan: History of JESSICA. CPAP ordered (7) HTN (hypertension) Current Visit: Yes Status: Chronic Assessment and plan: History of hypertension taking lisinopril a metoprolol. Blood pressure stable -Continue her medications Qualifiers: Hypertension type: essential hypertension Qualified Code(s): I10 - Essential (primary) hypertension (8) GERD (gastroesophageal reflux disease) Current Visit: Yes Status: Chronic Assessment and plan: History of known Gerd taking omeprazole -continue Protonix Qualifiers: Esophagitis presence: esophagitis presence not specified Qualified Code(s) : K21.9 - Gastro-esophageal reflux disease without esophagitis (9) Diabetes Current Visit: Yes Status: Chronic Assessment and plan: History of diabetes taking oral antihyperglycemic medications. -On insulin sliding scale due to hypertriglyceridemia induced pancreatitis -continue Accu checks -A1C 9.8, likely due to noncompliance with medications since patient admitted that he has not been compliant. Will advise him to follow up with his PCP on better glucose control. Qualifiers: Diabetes mellitus type: type 2 Diabetes mellitus 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 insulin use: without 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 use Diabetes mellitus complication status: with unspecified complications Qualified Code(s): E11.8 - Type 2 diabetes mellitus with unspecified complications (10) DVT prophylaxis Current Visit: Yes Status: Acute Assessment and plan: Heparin sq (11) Hyponatremia Current Visit: Yes Status: Acute Assessment and plan: Resolved. Likely secondary to dehydration and hypertriglyceridemia - Time Spent With Patient Total time spent is greater than 50% in coordination of care (as documented) at patient's floor/unit and/or counseling patient: - Subjective Interval history: 42yo male with PMH HTN, HLDm GERD presented to [facility] complaining of abdominal pain with nausea. Imaging and symptoms suggested acute pancreatitis. He reports abdominal pain has resolved. Denies chest pain, shortness of breath, fever, chills, nausea, vomiting. He tolerated full diabetic diet well. - Constitutional Vitals: Temp Pulse Resp BP Pulse Ox 97.0 F L 61 18 119/66 96 03/29/18 06:31 03/29/18 06:31 03/29/18 06:31 03/29/18 06:31 03/29/18 06:31 General appearance: Present: cooperative, mild distress, A&O X 3, pleasant, answers questions appropriately Exam: Gen.: Vitals noted. No acute distress. AAOx3 HEENT: oropharynx clear, Normocephalic, atraumatic Cardiac: RRR, no murmur, +S1/S2 Pulmonary: CTA bilaterally, no wheezes, rales or rhonchi, equal chest expansion Abdomen: soft, nontender, Bowel sounds noted, no guarding MSK: ROM intact, no joint swelling noted Extremities: no BLE edema, nontender calf, no cyanosis or clubbing Neuro: A&Ox3, moves all extremities, no focal deficits Psych: Appropriate mood and behavior Internal Medicine: Result - Labs CBC & Chem 7: 03/27/18 05:42 03/29/18 08:49 Labs: BMP 03/29/18 08:49 Sodium 136 Potassium 4.3 Chloride 105 Carbon Dioxide 27 BUN 9 Creatinine 0.95 Glucose 147 H Calcium 9.1 - ABG Interpretation ABG results: PT/INR, D-dimer PT TNP 03/23/18 09:49 - VTE Documentation of Mechanical Device: Intermittent pneumatic compression device Consult Discharge Plan - Plan Referrals: Diya Jain CNP [Primary Care Provider] - 04/05/18 9:45 am <Jean Marie Serrano - Last Filed: 03/29/18 17:27> Date of Encounter: 03/29/18 - Assessment and plan (1) Pancreatitis Current Visit: Yes Status: Acute Qualifiers: Chronicity: acute Pancreatitis type: unspecified pancreatitis type Acute pancreatitis complication: unspecified Qualified Code(s): K85.90 - Acute pancreatitis without necrosis or infection, unspecified (2) Diabetes Current Visit: Yes Status: Chronic Qualifiers: Diabetes mellitus type: type 2 Diabetes mellitus 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 insulin use: without 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 use Diabetes mellitus complication status: with unspecified complications Qualified Code(s): E11.8 - Type 2 diabetes mellitus with unspecified complications (3) GERD (gastroesophageal reflux disease) Current Visit: Yes Status: Chronic Qualifiers: Esophagitis presence: esophagitis presence not specified Qualified Code(s) : K21.9 - Gastro-esophageal reflux disease without esophagitis (4) HLD (hyperlipidemia) Current Visit: Yes Status: Chronic Qualifiers: Hyperlipidemia type: pure hypercholesterolemia Qualified Code(s): E78.00 - Pure hypercholesterolemia, unspecified; E78.0 - Pure hypercholesterolemia (5) HTN (hypertension) Current Visit: Yes Status: Chronic Qualifiers: Hypertension type: essential hypertension Qualified Code(s): I10 - Essential (primary) hypertension (6) DVT prophylaxis Current Visit: Yes Status: Acute (7) Nausea & vomiting Current Visit: Yes Status: Acute Qualifiers: Vomiting type: cyclical vomiting Vomiting Intractability: non-intractable Qualified Code(s): G43.A0 - Cyclical vomiting, not intractable (8) Tobacco abuse Current Visit: Yes Status: Chronic (9) JESSICA (obstructive sleep apnea) Current Visit: Yes Status: Chronic (10) Headache Current Visit: Yes Status: Acute Qualifiers: Headache type: tension-type Headache chronicity pattern: acute headache Intractability: not intractable Qualified Code(s): G44.209 - Tension-type headache, unspecified, not intractable (11) Hyponatremia Current Visit: Yes Status: Acute - Time Spent With Patient Total time spent is greater than 50% in coordination of care (as documented) at patient's floor/unit and/or counseling patient: - Constitutional Vitals: Temp Pulse Resp BP Pulse Ox 97.9 F 67 18 121/79 97 03/29/18 14:38 03/29/18 14:38 03/29/18 14:38 03/29/18 14:38 03/29/18 14:38 Internal Medicine: Result - Labs CBC & Chem 7: 03/27/18 05:42 03/29/18 14:03 Labs: BMP 03/29/18 03/29/18 08:49 14:03 Sodium 136 136 Potassium 4.3 4.1 Chloride 105 105 Carbon Dioxide 27 24 BUN 9 9 Creatinine 0.95 0.91 Glucose 147 H 95 Calcium 9.1 9.4 - ABG Interpretation ABG results: PT/INR, D-dimer PT TNP 03/23/18 09:49 - Attending Attestation I performed a history and physical examination of the patient and discussed his/ her management with the resident. I reviewed the residents note and agree with the documented findings and plan of care.
[2018-03-29 14:40] LABS: BUN/Creatinine Ratio 10 (6-26); Blood Urea Nitrogen 9 mg/dL (6-20); Calcium 9.4 mg/dL (8.6-10.3); Carbon Dioxide 24 mEq/L (23-29); Chloride 105 mEq/L (98-107); Glucose 95 mg/dL (70-105); Osmolality,Calculated 280 (280-300); Potassium 4.1 mEq/L (3.5-5.1); Sodium 136 mEq/L (136-145); eGFR For African Americans > 60 (> 60); eGFR For Non-African Americans > 60 (> 60)
[2018-03-29] MEDS: Ibuprofen 400 MG TABLET PO PRN (15:43)
[2018-03-29] MEDS ORDERED: Niacin (24 HR) 500 MG TAB.ER.24H PO SCH ×2 (19:15→21:00)
[2018-03-29 21:41] LABS: BUN/Creatinine Ratio 9 (6-26); Blood Urea Nitrogen 10 mg/dL (6-20); Calcium 9.1 mg/dL (8.6-10.3); Carbon Dioxide 23 mEq/L (23-29); Chloride 103 mEq/L (98-107); Glucose 186 mg/dL (70-105); Osmolality,Calculated 282 (280-300); Potassium 4.1 mEq/L (3.5-5.1); Sodium 134 mEq/L (136-145); eGFR For African Americans > 60 (> 60); eGFR For Non-African Americans > 60 (> 60)
[2018-03-30] MEDS: Insulin Human Regular 100 UNIT in 0.9 % Sodium Chloride 100 ML IVC SCH ×4 (00:18→12:36)
[2018-03-30] MEDS: Dextrose 50 % in Water (Vial) 100 ML in D5% in 0.45% NACL 1,000 ML IVC SCH (06:43)
[2018-03-30] MEDS: *HR* Heparin 5,000 UNIT/ML VIAL SQ SCH (06:44)
[2018-03-30] MEDS: Fenofibrate 54 MG TABLET PO SCH (08:34)
[2018-03-30] MEDS: Aspirin Enteric Coated 81 MG Tablet PO SCH (08:35)
[2018-03-30] MEDS: Metoprolol XL (24 HR) Succ 50 MG TAB.ER.24H PO SCH (08:35)
[2018-03-30] MEDS: Lisinopril 20 MG TABLET PO SCH (08:35)
[2018-03-30] MEDS: Ibuprofen 400 MG TABLET PO PRN (08:35)
[2018-03-30] MEDS: Nicotine 14 MG PATCH.TD24 TD SCH (08:39)
--- NOTE | 2018-03-30 09:11 | Internal Med Progress Note ---
Date of Encounter: 03/30/18 Time of Encounter: 09:10 - Assessment and plan (1) Pancreatitis Current Visit: Yes Status: Acute Qualifiers: Chronicity: acute Pancreatitis type: unspecified pancreatitis type Acute pancreatitis complication: unspecified Qualified Code(s): K85.90 - Acute pancreatitis without necrosis or infection, unspecified (2) HLD (hyperlipidemia) Current Visit: Yes Status: Chronic Qualifiers: Hyperlipidemia type: pure hypercholesterolemia Qualified Code(s): E78.00 - Pure hypercholesterolemia, unspecified; E78.0 - Pure hypercholesterolemia (3) Headache Current Visit: Yes Status: Acute Qualifiers: Headache type: tension-type Headache chronicity pattern: acute headache Intractability: not intractable Qualified Code(s): G44.209 - Tension-type headache, unspecified, not intractable (4) Nausea & vomiting Current Visit: Yes Status: Acute Qualifiers: Vomiting type: cyclical vomiting Vomiting Intractability: non-intractable Qualified Code(s): G43.A0 - Cyclical vomiting, not intractable (5) Tobacco abuse Current Visit: Yes Status: Chronic (6) JESSICA (obstructive sleep apnea) Current Visit: Yes Status: Chronic (7) Hyponatremia Current Visit: Yes Status: Acute (8) HTN (hypertension) Current Visit: Yes Status: Chronic Qualifiers: Hypertension type: essential hypertension Qualified Code(s): I10 - Essential (primary) hypertension (9) GERD (gastroesophageal reflux disease) Current Visit: Yes Status: Chronic Qualifiers: Esophagitis presence: esophagitis presence not specified Qualified Code(s) : K21.9 - Gastro-esophageal reflux disease without esophagitis (10) Diabetes Current Visit: Yes Status: Chronic Qualifiers: Diabetes mellitus type: type 2 Diabetes mellitus senior living insulin use: without intermediate accountant use Diabetes mellitus complication status: with unspecified complications Qualified Code(s): E11.8 - Type 2 diabetes mellitus with unspecified complications (11) DVT prophylaxis Current Visit: Yes Status: Acute - Time Spent With Patient Total time spent is greater than 50% in coordination of care (as documented) at patient's floor/unit and/or counseling patient: - Subjective Interval history: 42yo male with PMH HTN, HLDm GERD presented to [facility] complaining of abdominal pain with nausea. Imaging and symptoms suggested acute pancreatitis. He reports abdominal pain has resolved. Denies chest pain, shortness of breath, fever, chills, nausea, vomiting. He tolerated full diabetic diet well. He has a headache today but has received ibuprofen. - Constitutional Vitals: Temp Pulse Resp BP Pulse Ox 97.7 F 77 18 124/75 97 03/30/18 07:04 03/30/18 07:04 03/30/18 07:04 03/30/18 07:04 03/30/18 07:04 General appearance: Present: cooperative, mild distress, A&O X 3, pleasant, answers questions appropriately Exam: Gen.: Vitals noted. No acute distress. AAOx3 HEENT: oropharynx clear, Normocephalic, atraumatic Cardiac: RRR, no murmur, +S1/S2 Pulmonary: CTA bilaterally, no wheezes, rales or rhonchi, equal chest expansion Abdomen: soft, nontender, Bowel sounds noted, no guarding MSK: ROM intact, no joint swelling noted Extremities: no BLE edema, nontender calf, no cyanosis or clubbing Neuro: A&Ox3, moves all extremities, no focal deficits Psych: Appropriate mood and behavior Internal Medicine: Result - Labs CBC & Chem 7: 03/27/18 05:42 03/29/18 20:40 Labs: BMP 03/29/18 03/29/18 03/29/18 08:49 14:03 20:40 Sodium 136 136 134 L Potassium 4.3 4.1 4.1 Chloride 105 105 103 Carbon Dioxide 27 24 23 BUN 9 9 10 Creatinine 0.95 0.91 1.16 Glucose 147 H 95 186 H Calcium 9.1 9.4 9.1 - ABG Interpretation ABG results: PT/INR, D-dimer PT TNP 03/23/18 09:49 - VTE Documentation of Mechanical Device: Intermittent pneumatic compression device Consult Discharge Plan - Plan Referrals: Cristobal,Diya Will CNP [Primary Care Provider] - 04/05/18 9:45 am
[2018-03-30 10:45] VITALS: BP 132/84
--- NOTE | 2018-03-30 13:37 | Discharge Summary ---
<Lana Carlton - Last Filed: 03/30/18 13:35> - NOTES TO OUTPATIENT PROVIDER Notes to Outpatient Provider: Increased atorvastatin to 80 mg from 40 mg. gave him new prescription for Niaspan 500 HS. called [facility] to move up appointment sooner. He is to see them for his hypertriglyceridemia Date of Encounter: 03/30/18 Time of Encounter: 13:35 - Discharge Diagnosis (1) Pancreatitis Priority: Primary Status: Acute Qualifiers: Chronicity: acute Pancreatitis type: unspecified pancreatitis type Acute pancreatitis complication: unspecified Qualified Code(s): K85.90 - Acute pancreatitis without necrosis or infection, unspecified (2) HLD (hyperlipidemia) Priority: Secondary Status: Chronic Qualifiers: Hyperlipidemia type: pure hypercholesterolemia Qualified Code(s): E78.00 - Pure hypercholesterolemia, unspecified (3) Headache Priority: Secondary Status: Acute Qualifiers: Headache type: tension-type Headache chronicity pattern: acute headache Intractability: not intractable Qualified Code(s): G44.209 - Tension-type headache, unspecified, not intractable (4) Nausea & vomiting Priority: Secondary Status: Acute Qualifiers: Vomiting type: cyclical vomiting Vomiting Intractability: non-intractable Qualified Code(s): G43.A0 - Cyclical vomiting, not intractable (5) Tobacco abuse Priority: Secondary Status: Chronic (6) JESSICA (obstructive sleep apnea) Priority: Secondary Status: Chronic (7) HTN (hypertension) Priority: Secondary Status: Chronic Qualifiers: Hypertension type: essential hypertension Qualified Code(s): I10 - Essential (primary) hypertension (8) GERD (gastroesophageal reflux disease) Priority: Secondary Status: Chronic Qualifiers: Esophagitis presence: esophagitis presence not specified Qualified Code(s) : K21.9 - Gastro-esophageal reflux disease without esophagitis (9) Diabetes Priority: Secondary Status: Chronic Qualifiers: Diabetes mellitus type: type 2 Diabetes mellitus cans vacuum tester insulin use: without cans vacuum tester use Diabetes mellitus complication status: with unspecified complications Qualified Code(s): E11.8 - Type 2 diabetes mellitus with unspecified complications (10) DVT prophylaxis Priority: Secondary Status: Acute (11) Hyponatremia Priority: Secondary Status: Acute Hospital course: Mr. Miller is a 42 year old male w/PMH of diabetes controlled with oral antihyperglycemic medications, GERD, HLD, and HTN presents from the ED with chief complaint of abdominal pain that began yesterday and a tension type headache that began 5 days ago w/eye pain and eye drainage. Reports hx of sinus problems. Patient states he had similar abdominal pain 3 years ago with pancreatitis dx. onset of tension-type headache as new. Pt. reports Ibuprofen helps w/GARNETT pain. Pt. reports he has not eaten since Thursday d/t N/V. Reports appt. @ [facility] of April for triglyceride elevation. Pt. reports being NPO helps w/abdominal pain. Denies recent illness, fever, chills, changes in vision , chest pain, shortness of breath, palpitations, weakness, fatigue, numbness, tingling, diarrhea, constipation, dizziness, lightheadedness, cough, chest congestion, presyncope, or syncope. He was an admitted. Abdominal CT demonstrated acute pancreatitis. Gallbladder ultrasound demonstrated no stones. Triglycerides were 4023, Lipase 34 amylase 28 AST 11 ALT 16. He reported that he had not taken his medications such as atorvastatin and TriCor in over 2 weeks. He was started on an insulin drip 0.1 units per kilogram along with dextrose 5%. This triglycerides continue to decrease their his day until they plateaued. When they plateaued his insulin drip was increased to 0.2 units/kg and dextrose 10%. Niaspan was added in his atorvastatin was increased to 80 mg. He was also restarted on his TriCor. This triglycerides decreased to 1849 then 1391. Upon discharge his triglycerides only decreased to 1369. For the past 4 days of admission he had denied abdominal pain in improved clinically. Since he had clinically improved and his triglycerides markedly decreased it was determined that since they were plateauing this is most likely near his baseline, and therefore he would be able to be discharged. It was discussed with him the risk of hypoglycemia if we increased his insulin. Our nursing staff called [facility] to make his appointment sooner for his evaluation with them for his hypertriglyceridemia. They moved up his appointment a month sooner. It was determined that he may be discharged with prescriptions for his increased atorvastatin 80 mg, Niaspan, TriCor. With follow-up at [facility]. He was instructed to follow up with his PCP in a week or 2. He was alert and oriented times 3 with full capacity and stated a clear understanding of the treatment and plan. Discharge discussed with: patient, nurse - Time Spent with Patient Total time spent providing and/or coordinating discharge services: Greater than 30 minutes - Discharge Medications Prescriptions: Atorvastatin [Lipitor] 80 mg PO HS #30 tablet Fenofibrate Nanocrystallized [Triglide] 160 mg PO DAILY #30 tablet Niacin (24 HR) [Niaspan] 500 mg PO HS #30 tab.er.24h Home Medications: Escitalopram [Lexapro] 20 mg PO DAILY 03/23/18 [History] Glimepiride [Amaryl] 2 mg PO DAILY 03/23/18 [History] Lisinopril [Zestril] 20 mg PO DAILY 03/23/18 [History] Metoprolol Succinate 100 mg PO DAILY 03/23/18 [History] [place]-3/Dha/Epa/Fish Oil [Fish Oil 1,000 mg Softgel] 2 cap PO DAILY 03/23/18 [ History] Omeprazole [PriLOSEC] 20 mg PO BID 03/23/18 [History] metFORMIN [Glucophage] 1,000 mg PO BIDWM 03/23/18 [History] Atorvastatin [Lipitor] 80 mg PO HS #30 tablet 03/30/18 [Rx] Fenofibrate Nanocrystallized [Triglide] 160 mg PO DAILY #30 tablet 03/30/18 [Rx] Niacin (24 HR) [Niaspan] 500 mg PO HS #30 tab.er.24h 03/30/18 [Rx] Allergies/Adverse Reactions: 3 Allergy/AdvReac Type Severity Reaction Status Date / Time No Known Allergies Allergy Verified 03/23/18 09:30 Date of admission: 03/26/18 18:24 Primary care physician: Diya Jain CNP Consults: 03/28/18 13:58 consult to radiator tester [Consult to Nutrition] [CONS] Routine Comment: Cholesterol diet Consulting Provider: NUTRITION Reason for Dietary Consult: Diet Education Discharging clinician: Jonnie Sanchez Anticipated date of discharge: 03/30/18 - Constitutional Vitals: Temp Pulse Resp BP Pulse Ox 98.3 F 80 18 132/84 95 03/30/18 10:43 03/30/18 10:43 03/30/18 10:43 03/30/18 10:43 03/30/18 10:43 General appearance: Present: cooperative, mild distress, A&O X 3, pleasant, answers questions appropriately Exam: Gen.: Vitals noted. No acute distress. AAOx3 HEENT: oropharynx clear, Normocephalic, atraumatic Cardiac: RRR, no murmur, +S1/S2 Pulmonary: CTA bilaterally, no wheezes, rales or rhonchi, equal chest expansion Abdomen: soft, nontender, Bowel sounds noted, no guarding MSK: ROM intact, no joint swelling noted Extremities: no BLE edema, nontender calf, no cyanosis or clubbing Neuro: A&Ox3, moves all extremities, no focal deficits Psych: Appropriate mood and behavior - Patient Status Disposition: Home, Self-Care Condition: Good Functional capacity at discharge: independent ambulation Overall status at discharge: patient is back to baseline - Discharge Instructions Follow Up With: Diya Jain CNP [Primary Care Provider] - 04/05/18 9:45 am Forms: Work/School Release Additional Instructions: Take atorvastatin, TriCor, new prescription of Niaspan follow-up with [facility] follow-up with your PCP in a week or 2 follow a low fat diets, no alcohol - Diet and Activity Activity: resume usual activities as tolerated Diet: advance to your usual diet - VTE Documentation of Mechanical Device: Intermittent pneumatic compression device <Jonnie Sanchez - Last Filed: 03/30/18 16:31> Date of Encounter: 03/30/18 - Discharge Diagnosis (1) Pancreatitis Status: Resolved Qualifiers: Chronicity: acute Pancreatitis type: other Acute pancreatitis complication: no infection or necrosis Qualified Code(s): K85.80 - Other acute pancreatitis without necrosis or infection (2) Diabetes Status: Chronic Qualifiers: Diabetes mellitus type: type 2 Diabetes mellitus care home insulin use: without care home use Diabetes mellitus complication status: without complication Qualified Code(s): E11.9 - Type 2 diabetes mellitus without complications (3) GERD (gastroesophageal reflux disease) Status: Chronic Qualifiers: Esophagitis presence: esophagitis presence not specified Qualified Code(s) : K21.9 - Gastro-esophageal reflux disease without esophagitis (4) HLD (hyperlipidemia) Status: Chronic Qualifiers: Hyperlipidemia type: mixed hyperlipidemia Qualified Code(s): E78.2 - Mixed hyperlipidemia (5) HTN (hypertension) Status: Chronic Qualifiers: Hypertension type: essential hypertension Qualified Code(s): I10 - Essential (primary) hypertension (6) Nausea & vomiting Status: Acute Qualifiers: Vomiting type: cyclical vomiting Vomiting Intractability: non-intractable Qualified Code(s): G43.A0 - Cyclical vomiting, not intractable (7) Tobacco abuse Status: Chronic (8) JESSICA (obstructive sleep apnea) Status: Chronic (9) Headache Status: Resolved Qualifiers: Headache type: tension-type Headache chronicity pattern: acute headache Intractability: not intractable Qualified Code(s): G44.209 - Tension-type headache, unspecified, not intractable (10) Hyponatremia Status: Resolved (11) Morbid obesity with BMI of 40.0-44.9, adult Priority: Secondary Status: Chronic Hospital course: Mr. Miller is a 42 year old male - Time Spent with Patient Total time spent providing and/or coordinating discharge services: 38min Date of admission: 03/26/18 18:24 Primary care physician: Diya Jain, [employer] AND EVENTS MANAGER Consults: 03/28/18 13:58 consult to radiator tester [Consult to Nutrition] [CONS] Routine Comment: Cholesterol diet Consulting Provider: NUTRITION Reason for Dietary Consult: Diet Education - Constitutional Vitals: Temp Pulse Resp BP Pulse Ox 98.3 F 80 18 132/84 95 03/30/18 10:43 03/30/18 10:43 03/30/18 10:43 03/30/18 10:43 03/30/18 10:43 - Attending Attestation I examined this patient and my medical decision-making was reviewed with the Resident Physician on 03/30/18. I agree with the documented findings, disposition and treatment plan as described except to the extent set forth below. Mr Miller has been admitted for acute pancreatitis related to hypertriglyceridemia. He has clinically improved though TRIG still greater than 1300 despite insulin drip. He is tolerating new meds. He has appt in April at [facility] to discuss doing plasmapheresis. He is currently afebrile. Exam alert Comfortable Mucus membranes dry Heart reg No wheeze Plan Pt is currently asymptomatic and tolerating a diet. Will d/c drip and d/c home today. Atorvastatin increased and Niacin added (told to take at night with hs ASA). I explained to patient and his that if symptoms return (i.e. pancreatitis) that he should go to [facility] to discuss pheresis to be done sooner.
== END 2018-03-30 14:27 | disposition home or self-care (01) | DRG 439 ==
LOC: EMEROO 09:27 → 3ANU 09:27 → SUATTDRO 03-26 18:24
PROVIDERS: ADMIT Student in an Organized Health Care Education/Training Program; ATTEND Internal Medicine

== ENCOUNTER 2021-07-25 09:44 | Inpatient (IN) ==
[2021-07-25] MEDS ORDERED: Gadolinium Contrast Agent (WT Based) IV PRN (10:17)
[2021-07-25] MEDS ORDERED: *HR* HYDROmorphone (PF) 1 MG/ML SYRINGE IVP ONE (10:19)
[2021-07-25] MEDS ORDERED: 0.9 % Sodium Chloride 1,000 ML IVC ONE (10:19)
[2021-07-25] MEDS ORDERED: Ketorolac 15 MG/ML VIAL IVP ONE (10:20)
[2021-07-25] MEDS: Ringers Solution, Lactated 1,000 ML IVC SCH (10:47)
[2021-07-25] MEDS ORDERED: *HR* LORazepam 2 MG/ML VIAL IVP ONE (10:52)
[2021-07-25] MEDS ORDERED: *HR* LORazepam 2 MG/ML VIAL ONE (10:53)
[2021-07-25] MEDS ORDERED: GADOBUTROL 30 MMOL/30 ML VIAL IVP ONE (11:14)
[2021-07-25 11:15] LABS: Basophils # 0.1 K/mcL (0.0-0.2); Basophils % 0.4 %; Eosinophils # 0.1 K/mcL (0.0-0.6); Hematocrit 42.4 % (37.5-50.1); Hemoglobin 13.5 g/dL (12.9-16.9); Immature Granulocytes % 0.6 % (0-4); Lymphocytes # 3.7 K/mcL (0.6-4.6); Mean Corpuscular HGB Conc 31.8 g/dL (31.6-35.5); Mean Corpuscular Hemoglobin 26.1 pg (28.0-33.3); Mean Corpuscular Volume 81.9 fL (83.0-100.0); Mean Platelet Volume 10.6 fL (9.4-12.4); Monocytes # 1.1 K/mcL (0.0-1.3); Monocytes % 8.1 %; Neutrophils # 8.5 K/mcL (1.6-8.9); Platelet Count 236 K/mcL (140-400); Red Blood Count 5.18 M/mcL (4.19-5.50); Red Cell Distribution Width 13.8 % (11.5-14.5); Segmented Neutrophils % 62.9 %; White Blood Count 13.5 K/mcL (4.3-11.1)
[2021-07-25 11:22] LABS: Prothrombin Time 11.1 Seconds (9.4-12.1)
[2021-07-25 11:24] LABS: Activated Partial Thrombo Time 35.4 Seconds (26.0-36.0)
[2021-07-25 11:27] LABS: Bacteria,Urine Few per hpf (None-Few); Bilirubin,Urine Negative (Negative); Blood,Urine Negative (Negative); Clarity,Urine Clear (Clear); Color,Urine Yellow (Yellow); Glucose,Urine (UA) Normal (Normal); Hyaline Casts,Urine Moderate per lpf (None Seen); Ketones,Urine Negative (Negative); Leukocyte Esterase,Urine Negative (Negative); Mucus,Urine Few per lpf (None-Few); Nitrite,Urine Negative (Negative); Protein,Urine 30 mg/dL (Neg-Trace); RBC,Urine 0-3 per hpf (0-3); Specific Gravity,Urine 1.017 (1.010-1.025); Squamous Epithelial Cell,Urine Few per hpf (None-Few); Urobilinogen,Urine Normal (Normal); WBC,Urine 0-3 per hpf (0-3)
[2021-07-25 11:38] LABS: Calcium 10.2 mg/dL (8.6-10.3); Potassium 4.3 mEq/L (3.5-5.1)
[2021-07-25] MEDS ORDERED: Ondansetron 4 MG/2 ML VIAL IVP PRN (11:52)
[2021-07-25] MEDS ORDERED: Naloxone 0.4 MG/ML INJ IVP PRN (11:52)
[2021-07-25] MEDS ORDERED: *HR* Dextrose 50 % in Water (Vial) 50 ML VIAL IVP PRN (11:53)
[2021-07-25] MEDS ORDERED: D5% in Water 1,000 ML IVC PRN (11:53)
[2021-07-25] MEDS ORDERED: Dextrose Gel 15 GM/37.5 ML TUBE PO PRN ×2 (11:53)
[2021-07-25 12:15] LABS: Estimated Average Glucose 258 mg/dl; Hemoglobin A1C 10.6 %
[2021-07-25] MEDS ORDERED: *HR* HYDROmorphone (PF) 1 MG/ML SYRINGE IVP PRN (12:45)
[2021-07-25] MEDS ORDERED: *HR* LORazepam 2 MG/ML VIAL IVP PRN (12:46)
[2021-07-25] MEDS ORDERED: 0.9 % Sodium Chloride 1,000 ML IVC SCH (13:00)
[2021-07-25] MEDS: *HR* OxyCODONE/APAP 5/325 TABLET PO SCH ×3 (15:11→23:37)
[2021-07-25] MEDS: *HR* Heparin 5,000 UNIT/ML VIAL SQ SCH (18:05)
[2021-07-25] MEDS: Insulin LISPRO 300 UNITS/3 ML VIAL SUBQ SCH (18:05)
[2021-07-25] MEDS: Gabapentin 300 MG CAPSULE PO SCH ×2 (18:05→21:12)
[2021-07-25] MEDS ORDERED: Insulin LISPRO 300 UNITS/3 ML VIAL SUBQ SCH (21:00)
[2021-07-26] MEDS: *HR* Heparin 5,000 UNIT/ML VIAL SQ SCH (04:59)
[2021-07-26] MEDS: *HR* OxyCODONE/APAP 5/325 TABLET PO SCH ×2 (05:41→12:22)
[2021-07-26] MEDS: Ringers Solution, Lactated 1,000 ML IVC SCH (05:42)
[2021-07-26 06:21] LABS: Basophils % 0.4 %; Eosinophils # 0.4 K/mcL (0.0-0.6); Eosinophils % 3.4 %; Hematocrit 37.3 % (37.5-50.1); Immature Granulocytes % 0.4 % (0-4); Lymphocytes # 3.7 K/mcL (0.6-4.6); Lymphocytes % 34.3 %; Mean Corpuscular HGB Conc 31.1 g/dL (31.6-35.5); Mean Corpuscular Hemoglobin 25.8 pg (28.0-33.3); Mean Corpuscular Volume 83.1 fL (83.0-100.0); Mean Platelet Volume 10.9 fL (9.4-12.4); Monocytes # 0.9 K/mcL (0.0-1.3); Monocytes % 8.1 %; Neutrophils # 5.8 K/mcL (1.6-8.9); Platelet Count 192 K/mcL (140-400); Red Blood Count 4.49 M/mcL (4.19-5.50); Segmented Neutrophils % 53.4 %; White Blood Count 10.9 K/mcL (4.3-11.1)
[2021-07-26 06:22] LABS: Hemoglobin 11.6 g/dL (12.9-16.9)
[2021-07-26 06:43] LABS: Phosphorous 4.8 mg/dL (2.7-4.5); Potassium 3.9 mEq/L (3.5-5.1)
[2021-07-26] MEDS: Insulin LISPRO 300 UNITS/3 ML VIAL SUBQ SCH ×2 (07:23→11:48)
[2021-07-26] MEDS ORDERED: lisinopriL 20 MG TABLET PO SCH (09:00)
[2021-07-26] MEDS: Gabapentin 300 MG CAPSULE PO SCH (12:22)
[2021-07-26] MEDS ORDERED: *HR* Midazolam HCl 2 MG/2 ML VIAL ONE (13:32)
[2021-07-26] MEDS ORDERED: *HR* FentaNYL (PF) 100 MCG/2 ML VIAL ONE (13:32)
[2021-07-26] MEDS ORDERED: Lidocaine -MPF 4% 5 ML AMPUL ONE (13:33)
[2021-07-26] MEDS ORDERED: Ondansetron 4 MG/2 ML VIAL ONE (13:33)
[2021-07-26] MEDS ORDERED: *HR* Succinylcholine 200 MG/10 ML VIAL IVP ONE (13:33)
[2021-07-26] MEDS ORDERED: Lidocaine -MPF 2% 2 ML VIAL ONE (13:33)
[2021-07-26] MEDS ORDERED: *HR* Rocuronium Bromide 50 MG/5 ML VIAL ONE (13:33)
[2021-07-26] MEDS ORDERED: Polymyxin B Sulfate 500,000 UNIT, Sodium Chloride IRRigation 1,000 ML IR ONE (14:00)
[2021-07-26] MEDS ORDERED: Famotidine 20 MG/2 ML VIAL ONE (14:51)
[2021-07-26] MEDS ORDERED: Acetaminophen IV 1,000 MG/100 ML BAG IVPB ONE (14:51)
[2021-07-26] MEDS ORDERED: *HR* HYDROmorphone PF 0.5 MG/0.5 ML SYRINGE IVP PRN (15:08)
[2021-07-26] MEDS ORDERED: Ondansetron 4 MG/2 ML VIAL IVP PRN ×2 (15:08→17:46)
[2021-07-26] MEDS ORDERED: *HR* HYDROMORPHONE 2 MG/ML VIAL ONE (15:32)
[2021-07-26] MEDS ORDERED: EPHEDrine 50 MG/ML VIAL ONE (15:58)
[2021-07-26] MEDS ORDERED: Acetaminophen 325 MG TABLET PO PRN (17:46)
[2021-07-26] MEDS ORDERED: Ringers Solution, Lactated 1,000 ML IVC SCH (17:46)
[2021-07-26] MEDS ORDERED: Naloxone 0.4 MG/ML INJ IVP PRN (17:46)
[2021-07-26] MEDS: *HR* Metformin 500 MG TABLET PO SCH (20:15)
[2021-07-26] MEDS: *HR* OxyCODONE Immed Rel 5 MG TABLET PO PRN (21:31)
[2021-07-26] MEDS: CeFAZolin 2 GM/120 ML BAG IVPB SCH (23:11)
[2021-07-26] MEDS: *HR* HYDROcodone/Acet 5/325 mg TABLET PO PRN (23:15)
[2021-07-27] MEDS: *HR* HYDROcodone/Acet 5/325 mg TABLET PO PRN ×2 (05:34→15:53)
[2021-07-27] MEDS: Fenofibrate 54 MG TABLET PO SCH (08:39)
[2021-07-27] MEDS: Aspirin Enteric Coated 81 MG Tablet PO SCH (08:39)
[2021-07-27] MEDS: Multivit/Ca/Min/Fe/FA 1 TAB TABLET PO SCH (08:39)
[2021-07-27] MEDS: Furosemide 20 MG TABLET PO SCH (08:39)
[2021-07-27] MEDS: *HR* Metformin 500 MG TABLET PO SCH ×2 (08:39→15:53)
[2021-07-27] MEDS: *HR* Glimepiride 4 MG TABLET PO SCH (08:39)
[2021-07-27] MEDS: Ascorbic Acid 500 MG TABLET PO SCH (08:40)
[2021-07-27] MEDS: Loratadine 10 MG TABLET PO SCH (08:40)
[2021-07-27] MEDS: *HR* OxyCODONE Immed Rel 5 MG TABLET PO PRN ×2 (08:45→19:53)
[2021-07-27] MEDS: CeFAZolin 2 GM/120 ML BAG IVPB SCH (08:45)
[2021-07-27] MEDS ORDERED: Fenofibrate 54 MG TABLET PO SCH (09:00)
[2021-07-27] MEDS ORDERED: Aspirin Enteric Coated 81 MG Tablet PO SCH (09:00)
[2021-07-27] MEDS: Insulin DETEMIR 100 UNIT/ML X5UNITS SUBQ SCH (10:44)
[2021-07-27] MEDS ORDERED: *HR* OxyCODONE/APAP 5/325 TABLET PO PRN (12:14)
[2021-07-27 13:59] LABS: Hematocrit 39.2 % (37.5-50.1); Hemoglobin 12.7 g/dL (12.9-16.9); Mean Corpuscular HGB Conc 32.4 g/dL (31.6-35.5); Mean Corpuscular Hemoglobin 26.3 pg (28.0-33.3); Mean Corpuscular Volume 81.3 fL (83.0-100.0); Mean Platelet Volume 10.7 fL (9.4-12.4); Platelet Count 206 K/mcL (140-400); Red Blood Count 4.82 M/mcL (4.19-5.50); Red Cell Distribution Width 13.7 % (11.5-14.5); White Blood Count 13.3 K/mcL (4.3-11.1)
[2021-07-27 14:17] LABS: BUN/Creatinine Ratio 20 (6-26); Blood Urea Nitrogen 27 mg/dL (6-20); Calcium 9.4 mg/dL (8.6-10.3); Carbon Dioxide 22 mEq/L (23-29); Chloride 102 mEq/L (98-107); Glucose 247 mg/dL (70-105); Osmolality,Calculated 293 (280-300); Potassium 4.3 mEq/L (3.5-5.1); Sodium 135 mEq/L (136-145); eGFR For African Americans > 60 (> 60); eGFR For Non-African Americans 57 (> 60)
[2021-07-28] MEDS: *HR* OxyCODONE Immed Rel 5 MG TABLET PO PRN ×2 (01:03→08:29)
[2021-07-28 03:12] LABS: Hematocrit 39.6 % (37.5-50.1); Hemoglobin 12.7 g/dL (12.9-16.9); Mean Corpuscular HGB Conc 32.1 g/dL (31.6-35.5); Mean Corpuscular Hemoglobin 26.3 pg (28.0-33.3); Mean Platelet Volume 10.4 fL (9.4-12.4); Platelet Count 184 K/mcL (140-400); Red Blood Count 4.83 M/mcL (4.19-5.50); Red Cell Distribution Width 13.9 % (11.5-14.5)
[2021-07-28 03:31] LABS: BUN/Creatinine Ratio 22 (6-26); Blood Urea Nitrogen 27 mg/dL (6-20); Calcium 9.7 mg/dL (8.6-10.3); Carbon Dioxide 23 mEq/L (23-29); Chloride 103 mEq/L (98-107); Glucose 154 mg/dL (70-105); Osmolality,Calculated 290 (280-300); Potassium 4.2 mEq/L (3.5-5.1); Sodium 136 mEq/L (136-145); eGFR For African Americans > 60 (> 60); eGFR For Non-African Americans > 60 (> 60)
[2021-07-28] MEDS: *HR* HYDROcodone/Acet 5/325 mg TABLET PO PRN (03:45)
[2021-07-28] MEDS: Furosemide 20 MG TABLET PO SCH (08:23)
[2021-07-28] MEDS: *HR* Glimepiride 4 MG TABLET PO SCH (08:23)
[2021-07-28] MEDS: Multivit/Ca/Min/Fe/FA 1 TAB TABLET PO SCH (08:24)
[2021-07-28] MEDS: Aspirin Enteric Coated 81 MG Tablet PO SCH (08:24)
[2021-07-28] MEDS: Loratadine 10 MG TABLET PO SCH (08:24)
[2021-07-28] MEDS: Ascorbic Acid 500 MG TABLET PO SCH (08:24)
[2021-07-28] MEDS: *HR* Metformin 500 MG TABLET PO SCH (08:24)
[2021-07-28] MEDS: Fenofibrate 54 MG TABLET PO SCH (08:24)
[2021-07-28] MEDS: Insulin DETEMIR 100 UNIT/ML X5UNITS SUBQ SCH (08:35)
[2021-07-28 10:37] VITALS: BP 143/80; PULSE 100; TEMP 98.7; O2SAT 97
== END 2021-07-28 12:05 | disposition home or self-care (01) | DRG 519 ==
LOC: 3NENU 09:44 → EMEROOARM 09:44 → 3NENU 13:02
PROVIDERS: ADMIT Student in an Organized Health Care Education/Training Program; ATTEND Student in an Organized Health Care Education/Training Program